=== PATIENT | male | born 1965 | race Caucasian/White ===

== ENCOUNTER → 2017-09-03 | Outpatient (CLI) | payer MEDICARE, BC ==
--- NOTE | 2017-09-11 10:29 | P.ARTDOP ---
Arterial Doppler LOWER EXTREMITY ARTERIAL DOPPLER: DATE OF SERVICE: 09/03/2017 Reason for study: Bilateral calf claudication. Doppler waveforms: Multiphasic bilaterally throughout. Pulse volume recording: Normal configuration. Pressure gradients: None. Ankle-brachial indices: Greater than 1 bilaterally. Toe pressures: 96 on the right, 113 on the left Impression: Normal study.
== END ==
LOC: RADUSWWP 14:35
PROVIDERS: ATTEND Internal Medicine
DX: I73.9 Peripheral vascular disease, unspecified (principal)
CPT/HCPCS: 93922

== ENCOUNTER → 2018-05-22 | Outpatient (CLI) | payer MEDICARE, BC ==
[2018-05-22 09:03] LABS: T4, Free (Free Thyroxine) 0.84 ng/dL (0.78-2.19)
== END | disposition home or self-care (01) ==
LOC: LABWHC1 08:11
PROVIDERS: ATTEND Internal Medicine
DX: E11.8 Type 2 diabetes mellitus with unspecified complications (principal)
CPT/HCPCS: 36415; 80061; 84439; 84443

== ENCOUNTER → 2018-06-16 | Outpatient (CLI) | payer MEDICARE, BC ==
--- NOTE | 2018-06-16 13:05 | MR ---
EXAMINATION TYPE: MR cervical spine wo con DATE OF EXAM: 06/16/2018 9:41 AM COMPARISON: NONE HISTORY: Spondylosis w/o myelopathy or radiculopathy cervical region, neck and left arm pain Multiplanar MultiSpin echo imaging of the cervical spine was performed. Comparison: none C2-C3: No evidence for degenerative disc disease. No disc bulge/herniation or protrusion. No Canal stenosis. Foramina are patent bilaterally. C3-C4: No evidence for degenerative disc disease. No disc bulge/herniation or protrusion. No Canal stenosis. Foramina are patent bilaterally. C4-C5: Partial congenital fusion noted. No evidence for degenerative disc disease. No disc bulge/her niation or protrusion. No Canal stenosis. Foramina are patent bilaterally. C5-C6: Moderate disc desiccation noted. Circumferential disc bulge greatest posteriorly. Mild narrowi ng right-sided neural foramen secondary to degenerative change of the cervical apophyseal joints. No evidence for central stenosis or irene disc herniation. C6-C7: Moderate disc desiccation. Posterior disc bulge with encapsulating spur resulting in disc endp late complex posterocentral into the left. There is left sided neural foraminal encroachment severe i n degree. No central stenosis or disc herniation. C7-T1: Moderate disc desiccation noted. Circumferential disc bulge greatest posteriorly. No foraminal encroachment identified. No evidence for central stenosis or irene disc herniation. Cervical segments are intact. There is normal alignment. Scattered ventral spondylosis. Sinusitis n oted. Cervical spinal cord is of normal signal. Craniovertebral junction relationships are within no rmal limits. IMPRESSION: 1. Bilevel degenerative disc disease. 2. Disc bulging as discussed with varying degrees of foraminal encroachment.
== END | disposition home or self-care (01) ==
LOC: RADMRIMAIN 09:10
PROVIDERS: ATTEND Internal Medicine
DX: M50.223 Other cervical disc displacement at C6-C7 level (principal); M50.30 Other cervical disc degeneration, unspecified cervical region; R20.2 Paresthesia of skin
CPT/HCPCS: 72141

== ENCOUNTER → 2019-02-09 | Outpatient (CLI) | payer MEDICARE, BC | END | disposition home or self-care (01) | LOC: LABWHC1 08:12 | PROVIDERS: ATTEND Internal Medicine Endocrinology, Diabetes & Metabolism | DX: E11.65 Type 2 diabetes mellitus with hyperglycemia (principal); H02.429 Myogenic ptosis of unspecified eyelid | CPT/HCPCS: 36415; 82533; 83519 ==

== ENCOUNTER → 2019-04-28 | Outpatient (CLI) | payer MEDICARE, BC | END | disposition home or self-care (01) | LOC: LABWHC1 14:53 | PROVIDERS: ATTEND Internal Medicine Endocrinology, Diabetes & Metabolism | DX: E27.40 Unspecified adrenocortical insufficiency (principal) | CPT/HCPCS: 36415; 82024; 82533 ==

== ENCOUNTER → 2019-08-13 | Outpatient (CLI) | payer MEDICARE, BC ==
[2019-08-13 17:31] LABS: African American GFR (CKD) 86.5 (60.0-200.0); Albumin 4.9 g/dL (3.80-4.90); Albumin/Globulin Ratio 2.23 (1.60-3.17); Anion Gap 11.3 mmol/L (4.00-12.00); BUN/Creat Ratio 20.91 Ratio (12.00-20.00); Calcium 9.8 mg/dL (8.7-10.3); Carbon Dioxide 24.7 mmol/L (21.6-31.8); Chol/HDL Ratio 4.69; Globulin 2.2 g/dL (1.6-3.3); LDL Cholesterol,Calculated 69.8 mg/dL (0.0-131.0); Non-African American GFR(CKD) 74.6 (60.0-200.0); Potassium 4.6 mmol/L (3.5-5.5); Total Bilirubin 0.5 mg/dL (0.3-1.2); Total Protein 7.1 g/dL (6.2-8.2); VLDL Calculation 59.2 mg/dL (5.00-40.00)
[2019-08-13 21:04] LABS: Hemoglobin A1C 7.3 % (4.0-6.0)
== END | disposition home or self-care (01) ==
LOC: LABWHC1 07:55
PROVIDERS: ATTEND Internal Medicine Endocrinology, Diabetes & Metabolism
DX: E11.65 Type 2 diabetes mellitus with hyperglycemia (principal)
CPT/HCPCS: 36415; 80053; 80061; 82043; 82570; 83036; 84443

== ENCOUNTER → 2019-11-23 | Outpatient (CLI) | payer MEDICARE, BC ==
[2019-11-23 17:32] LABS: African American GFR (CKD) 97.1 (60.0-200.0); Albumin 4.9 g/dL (3.80-4.90); Albumin/Globulin Ratio 2.04 (1.60-3.17); Anion Gap 6.1 mmol/L (4.00-12.00); Calcium 9.7 mg/dL (8.7-10.3); Carbon Dioxide 25.9 mmol/L (21.6-31.8); Globulin 2.4 g/dL (1.6-3.3); Non-African American GFR(CKD) 83.8 (60.0-200.0); Potassium 4.6 mmol/L (3.5-5.5); Total Bilirubin 0.5 mg/dL (0.3-1.2); Total Protein 7.3 g/dL (6.2-8.2)
== END | disposition home or self-care (01) ==
LOC: LABWHC1 07:52
PROVIDERS: ATTEND Internal Medicine Endocrinology, Diabetes & Metabolism
DX: E27.40 Unspecified adrenocortical insufficiency (principal)
CPT/HCPCS: 36415; 80053; 82024; 82533

== ENCOUNTER → 2020-03-22 | Outpatient (CLI) | payer MEDICARE, BC ==
[2020-03-22 19:21] LABS: Urine Creatinine 51.9 mg/dL
== END | disposition home or self-care (01) ==
LOC: LABWHC1 10:02
PROVIDERS: ATTEND Internal Medicine Endocrinology, Diabetes & Metabolism
DX: E11.65 Type 2 diabetes mellitus with hyperglycemia (principal)
CPT/HCPCS: 36415; 82043; 82570; 84443

== ENCOUNTER → 2020-06-29 | Outpatient (CLI) | payer MEDICARE, BC ==
[2020-06-29 22:41] LABS: African American GFR (CKD) 97.1 (60.0-200.0); Albumin 4.7 g/dL (3.80-4.90); Albumin/Globulin Ratio 1.96 (1.60-3.17); Anion Gap 12.1 mmol/L (4.00-12.00); Calcium 9.4 mg/dL (8.7-10.3); Carbon Dioxide 22.9 mmol/L (21.6-31.8); Chol/HDL Ratio 5.23; Globulin 2.4 g/dL (1.6-3.3); LDL Cholesterol,Calculated 110.2 mg/dL (0.0-131.0); Non-African American GFR(CKD) 83.8 (60.0-200.0); Potassium 4.5 mmol/L (3.5-5.5); Total Bilirubin 0.5 mg/dL (0.3-1.2); Total Protein 7.1 g/dL (6.2-8.2); VLDL Calculation 54.8 mg/dL (5.00-40.00)
[2020-06-30 01:10] LABS: Urine Creatinine 73.4 mg/dL
== END | disposition home or self-care (01) ==
LOC: LABWHC1 09:33
PROVIDERS: ATTEND Internal Medicine Endocrinology, Diabetes & Metabolism
DX: E11.65 Type 2 diabetes mellitus with hyperglycemia (principal)
CPT/HCPCS: 36415; 80053; 80061; 82043; 82570; 83036; 84443

== ENCOUNTER 2021-01-07 10:22 | Inpatient (IN) | payer MEDICARE, BC ==
[2021-01-07] MEDS ORDERED: SODIUM CHLORIDE 0.9% 500 ML 500 ML IV STA (10:40)
--- NOTE | 2021-01-07 10:44 | ED ---
General Adult HPI - General Chief complaint: Neuro Symptoms/Deficit Stated complaint: Neuro Time Seen by Provider: 01/07/21 10:23 Source: patient, RN notes reviewed, old records reviewed Mode of arrival: EMS Limitations: no limitations - History of Present Illness Initial comments: 55-year-old male presenting with left leg weakness and gait instability. Patient noticed this first approximate 3 days ago. He states that he got out of bed and felt that his leg was asleep and subsequently fell. He did fall striking the back of his head. This occurred 2 days prior to arrival. He is on his third day of noted weakness in the left leg. Additionally he reports some visual changes stating that he cannot see things on the left side. He has had some generalized fatigue as well. No reported fever. No cough or dyspnea. No central chest pain. - Related Data Home Medications Medication Instructions Recorded Confirmed Amitriptyline HCl [Elavil] 10 mg PO HS 01/07/21 01/07/21 Atorvastatin Calcium [Lipitor] 10 mg PO HS 01/07/21 01/07/21 Bictegrav/Emtricit/Tenofov Ala 1 tab PO HS 01/07/21 01/07/21 [Biktarvy 50-200-25 mg Tablet] Canagliflozin [Invokana] 300 mg PO DAILY 01/07/21 01/07/21 Famciclovir [Famvir] 500 mg PO BID 01/07/21 01/07/21 Fosamprenavir Calcium [Lexiva] 1,400 mg PO BID 01/07/21 01/07/21 Gabapentin 800 mg PO TID 01/07/21 01/07/21 Ibuprofen [Motrin Ib] 400 mg PO Q8H PRN 01/07/21 01/07/21 Lisinopril [Zestril] 10 mg PO HS 01/07/21 01/07/21 Pioglitazone [Actos] 30 mg PO DAILY 01/07/21 01/07/21 Terazosin [Hytrin] 2 mg PO DAILY 01/07/21 01/07/21 Testosterone [Androgel 1.62% Gel 2 pump TOPICAL DAILY 01/07/21 01/07/21 Pump] glipiZIDE [Glucotrol] 7.5 mg PO BID 01/07/21 01/07/21 metFORMIN HCL [Glucophage] 500 mg PO AC-BID 01/07/21 01/07/21 Allergies Allergy/AdvReac Type Severity Reaction Status Date / Time 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 ROS Other: All systems not noted in ROS Statement are negative. Past Medical History Past Medical History: Cancer, Diabetes Mellitus, Hyperlipidemia Additional Past Medical History / Comment(s): AIDS, verigo, nurophathy, Rectal CA - last surgery History of Any Multi-Drug Resistant Organisms: None Reported Past Surgical History: Tonsillectomy Past Psychological History: No Psychological Hx Reported Smoking Status: Former smoker Past Alcohol Use History: None Reported Past Drug Use History: None Reported General Exam Limitations: no limitations General appearance: alert, in no apparent distress Head exam: Present: atraumatic, normocephalic Eye exam: Present: normal appearance, PERRL, other (Apparent left visual field deficit) ENT exam: Present: normal exam Neck exam: Present: normal inspection. Absent: tenderness, meningismus Respiratory exam: Present: normal lung sounds bilaterally. Absent: respiratory distress, wheezes Cardiovascular Exam: Present: regular rate, normal rhythm GI/Abdominal exam: Present: soft. Absent: distended, tenderness, guarding Extremities exam: Present: normal inspection, normal capillary refill. Absent: pedal edema Neurological exam: Present: alert, oriented X3, CN II-XII intact, motor sensory deficit (Left leg weakness, able to resist against gravity) Psychiatric exam: Present: normal affect, normal mood Skin exam: Present: warm, dry, intact. Absent: cyanosis, diaphoretic Course Vital Signs 01/07/21 01/07/21 01/07/21 10:23 11:00 11:30 Temperature 98.8 F Pulse Rate 88 85 82 Respiratory 18 18 18 Rate Blood Pressure 142/95 137/96 131/88 O2 Sat by Pulse 99 96 Oximetry 01/07/21 12:00 Temperature Pulse Rate 78 Respiratory 16 Rate Blood Pressure 122/82 O2 Sat by Pulse 96 Oximetry EKG Findings - EKG Comments: EKG Findings:: EKG: Normal sinus rhythm, rate superior axis, no ST segment elevation, rate of 85, SD interval 168, QRS duration 92, QTC 456 Medical Decision Making - Medical Decision Making 55-year-old male presenting with symptoms concerning for CVA. Patient is not a TPA candidate given that his symptoms began greater than 2 days ago. He has left leg weakness. Additionally he has visual field deficit bilateral eyes on the left. Workup reveals CT that shows concern for right parietal occipital infarct. There is no hemorrhage. CT angiography negative for acute occlusion or aneurysmal change. Patient is given aspirin emergency department. He will be admitted for further stroke workup. Case discussed with Dr. Conrad who will admit. - Lab Data Result diagrams: 01/07/21 10:55 01/07/21 10:55 Lab Results 01/07/21 01/07/21 01/07/21 Range/Units 10:55 10:55 10:55 WBC 6.3 (3.8-10.6) k/uL RBC 5.42 (4.30-5.90) m/uL Hgb 14.7 (13.0-17.5) gm/dL Hct 44.6 (39.0-53.0) % MCV 82.2 (80.0-100.0) fL MCH 27.2 (25.0-35.0) pg MCHC 33.1 (31.0-37.0) g/dL RDW 15.3 (11.5-15.5) % Plt Count 186 (150-450) k/uL MPV 7.6 Neutrophils % 67 % Lymphocytes % 24 % Monocytes % 5 % Eosinophils % 3 % Basophils % 0 % Neutrophils # 4.2 (1.3-7.7) k/uL Lymphocytes # 1.5 (1.0-4.8) k/uL Monocytes # 0.3 (0-1.0) k/uL Eosinophils # 0.2 (0-0.7) k/uL Basophils # 0.0 (0-0.2) k/uL PT 10.4 (9.0-12.0) sec INR 1.0 (<1.2) APTT 21.6 L (22.0-30.0) sec Sodium 140 (137-145) mmol/L Potassium 4.7 (3.5-5.1) mmol/L Chloride 106 (98-107) mmol/L Carbon Dioxide 23 (22-30) mmol/L Anion Gap 11 mmol/L BUN 28 H (9-20) mg/dL Creatinine 1.00 (0.66-1.25) mg/dL Est GFR (CKD-EPI)AfAm >90 (>60 ml/min/1.73 sqM) Est GFR (CKD-EPI)NonAf 83 (>60 ml/min/1.73 sqM) Glucose 154 H (74-99) mg/dL Calcium 9.2 (8.4-10.2) mg/dL Total Bilirubin 0.8 (0.2-1.3) mg/dL AST 47 (17-59) U/L ALT 64 H (4-49) U/L Alkaline Phosphatase 45 (38-126) U/L Troponin I (0.000-0.034) ng/mL Total Protein 7.1 (6.3-8.2) g/dL Albumin 4.3 (3.5-5.0) g/dL 01/07/21 Range/Units 10:55 WBC (3.8-10.6) k/uL RBC (4.30-5.90) m/uL Hgb (13.0-17.5) gm/dL Hct (39.0-53.0) % MCV (80.0-100.0) fL MCH (25.0-35.0) pg MCHC (31.0-37.0) g/dL RDW (11.5-15.5) % Plt Count (150-450) k/uL MPV Neutrophils % % Lymphocytes % % Monocytes % % Eosinophils % % Basophils % % Neutrophils # (1.3-7.7) k/uL Lymphocytes # (1.0-4.8) k/uL Monocytes # (0-1.0) k/uL Eosinophils # (0-0.7) k/uL Basophils # (0-0.2) k/uL PT (9.0-12.0) sec INR (<1.2) APTT (22.0-30.0) sec Sodium (137-145) mmol/L Potassium (3.5-5.1) mmol/L Chloride (98-107) mmol/L Carbon Dioxide (22-30) mmol/L Anion Gap mmol/L BUN (9-20) mg/dL Creatinine (0.66-1.25) mg/dL Est GFR (CKD-EPI)AfAm (>60 ml/min/1.73 sqM) Est GFR (CKD-EPI)NonAf (>60 ml/min/1.73 sqM) Glucose (74-99) mg/dL Calcium (8.4-10.2) mg/dL Total Bilirubin (0.2-1.3) mg/dL AST (17-59) U/L ALT (4-49) U/L Alkaline Phosphatase (38-126) U/L Troponin I <0.012 (0.000-0.034) ng/mL Total Protein (6.3-8.2) g/dL Albumin (3.5-5.0) g/dL Disposition Clinical Impression: Cerebrovascular accident (CVA) Disposition: ADMITTED IP TO THIS [facility] Condition: Stable Is patient prescribed a controlled substance at d/c from ED?: No Referrals: Nonstaff,Physician [Primary Care Provider] - 1-2 days Decision to Admit Reason: Admit from EC Decision Date: 01/07/21 Decision Time: 13:12
[2021-01-07 11:15] LABS: Basophils % (A) 0 %; Eosinophils # (A) 0.2 k/uL (0-0.7); Eosinophils % (A) 3 %; HCT 44.6 % (39.0-53.0); HGB 14.7 gm/dL (13.0-17.5); Lymphocytes # (A) 1.5 k/uL (1.0-4.8); Lymphocytes % (A) 24 %; MCH 27.2 pg (25.0-35.0); MCHC 33.1 g/dL (31.0-37.0); MCV 82.2 fL (80.0-100.0); Mean Platelet Volume 7.6; Monocytes # (A) 0.3 k/uL (0-1.0); Monocytes % (A) 5 %; Neutrophils # (A) 4.2 k/uL (1.3-7.7); Neutrophils % (A) 67 %; Platelet Count 186 k/uL (150-450); RBC 5.42 m/uL (4.30-5.90); RDW 15.3 % (11.5-15.5); WBC 6.3 k/uL (3.8-10.6)
[2021-01-07 11:27] LABS: ALT 64 U/L (4-49); AST 47 U/L (17-59); African American GFR (CKD) >90 (>60 ml/min/1.73 sqM); Albumin 4.3 g/dL (3.5-5.0); Alkaline Phosphatase 45 U/L (38-126); Anion Gap 11 mmol/L; Blood Urea Nitrogen 28 mg/dL (9-20); Calcium 9.2 mg/dL (8.4-10.2); Carbon Dioxide 23 mmol/L (22-30); Chloride 106 mmol/L (98-107); Glucose 154 mg/dL (74-99); Non-African American GFR(CKD) 83 (>60 ml/min/1.73 sqM); Potassium 4.7 mmol/L (3.5-5.1); Sodium 140 mmol/L (137-145); Total Bilirubin 0.8 mg/dL (0.2-1.3); Total Protein 7.1 g/dL (6.3-8.2)
[2021-01-07 11:40] LABS: Prothrombin Time 10.4 sec (9.0-12.0)
[2021-01-07 11:44] LABS: Partial Thromboplastin Time 21.6 sec (22.0-30.0)
--- NOTE | 2021-01-07 11:44 | XR ---
EXAMINATION TYPE: XR chest 2V DATE OF EXAM: 01/07/2021 COMPARISON: NONE HISTORY: Altered mental status and weakness. TECHNIQUE: Frontal and lateral views of the chest are obtained. FINDINGS: There is mild chronic parenchymal changes without suspicious focal air space opacity, pleu ral effusion, or pneumothorax seen. The cardiac silhouette size is within normal limits. The osseo us structures are intact. IMPRESSION: No acute cardiopulmonary process.
--- NOTE | 2021-01-07 11:53 | CT ---
EXAMINATION TYPE: CT brain wo con for TPA DATE OF EXAM: 01/07/2021 HISTORY: Left sided weakness, neuro deficits, acute, stroke symptoms. Acute onset neuro deficit. CT DLP: 1051.8 mGycm. Automated Exposure Control for Dose Reduction was Utilized. TECHNIQUE: CT scan of the head is performed without contrast. COMPARISON: None. FINDINGS: There is no acute intracranial hemorrhage or midline shift identified. There is diffuse v entricular and sulcal prominence consistent with diffuse age-related cerebral atrophy. Vague area of low attenuation right parietal occipital white matter inferiorly near axial image 32 and coronal imag e 52. There is extension into the posterior superior temporal lobe medially axial image 26. The glob es are intact and the visualized sinuses are clear. IMPRESSION: No acute intracranial hemorrhage or midline shift. There is mild diffuse age-related ce rebral atrophy. Nonspecific vague area of low attenuation right parietal occipital region extending i nto the posterior superior temporal lobe suspicious for evolving acute infarct.
--- NOTE | 2021-01-07 13:04 | CT ---
EXAMINATION TYPE: CT angio head neck DATE OF EXAM: 01/07/2021 HISTORY: Left sided weakness, neuro deficits, acute onset neuro deficit, stroke symptoms COMPARISON: None. CT DLP: 368.7 mGycm. Automated Exposure Control for Dose Reduction was Utilized. TECHNIQUE: CTA scan of the head and neck are performed with IV Contrast, patient injected with 65 mL of Isovue 370, axial images are obtained, coronal and sagittal reformatted images are reviewed. Thre e-D reconstructed images are created on an independent workstation and reviewed. FINDINGS: Carotid/Vascular Structures: Normal 3 vessel origin from aortic arch. Normal origin right common river[place] tid artery from the right brachiocephalic artery. No significant plaque or stenosis in the common car otid arteries bilaterally. There is mild mixed plaque at the bilateral carotid bulbs extending into p roximal internal carotid arteries bilaterally. No significant stenosis is seen. No significant plaque or stenosis in the external carotid arteries bilaterally. There is a patent anterior communicating artery. There is no significant focal stenosis or aneurysmal change in the anterior circulation. There is codominant vertebral basilar system. Vertebral arteries are patent to basilar junction. There are hypoplastic bilateral posterior communicating arteries. No significant focal stenosis or aneurysm is seen. Other: Underlying scoliotic curvature on coronal images. Moderate disc space narrowing with some oss ific fusion at the C4-C5 level. Prominent anterior osteophytes in the upper to mid thoracic spine. IMPRESSION: 1. Mild plaque bilateral carotid bulb level. No significant stenosis in common or internal carotid ar teries bilaterally. 2. No significant stenosis or aneurysm at the level of the [place].
[2021-01-07] MEDS ORDERED: ASPIRIN 325 MG TAB PO STA (13:09)
[2021-01-07] MEDS: SODIUM CHLORIDE 0.9% 1,000 ML IV SCH ×2 (13:18→23:15)
[2021-01-07] MEDS ORDERED: ATORVASTATIN 80 MG TAB PO STA (15:42)
[2021-01-07] MEDS ORDERED: CLOPIDOGREL 75 MG TAB PO STA (15:43)
--- NOTE | 2021-01-07 16:43 | P.CNNES ---
History of Present Illness Consult date: 01/07/21 Requesting physician: Richard Valentin Reason for Consult: Stroke for left sided weakness History of Present Illness: This is a 55-year-old gentleman with medical history of diabetes mellitus (10 years), HIV since 1994, neuropathy, lipid dystrophy and hyperlipidemia who presented emergency department on 01/07/2021 for left-sided weakness which occurred 3 days ago. As stated that about 3 days ago he woke up and all of a sudden he noticed his left leg was weak as well was numb. Then he was a thin stated later he fell down the stairs and doesn't have a good recall and of the episode but denies any urinary incontinence, bowel incontinence or tongue bite. He thought his symptoms were related to diabetes. Next day he noticed that while he is using a fork he is having difficulty using it was on the left hand. He said his symptoms are worsened the next day as a result he decided to come to the emergency department today. He denies of any history of stroke or transient ischemic attack. He is on aspirin 81 mg daily, Lipitor 10 g daily. He denies tobacco use or alcohol use. Denies diagnosis of epilepsy in the past. He has history of HIV since 1994 and he's been compliant with taking his medication and he follows up with the infection disease specialist as well as a neurologist [facility] at [facility]. Regarding his neuropathy and he said that started a prior to his diabetes and was likely due to medication the fact from the HIV. Patient home medication is Lipitor 10 mg, multiple diabetic medication, lisinopril, gabapentin. He is on Biktarvy for HIV and is compliant taking his medication. Workup in the hospital consisted of: Initial vital signs: Blood pressure of 142/95, heart rate of 88, respiratory of 18, temperature of 98.8 Fahrenheit oral and pulse ox of 99% room air. CT of the head is reported as no acute intracranial hemorrhage or midline shift. There is mild diffuse age-related cerebral atrophy. Nonspecific vague area of low attenuation right parietal occipital region extending into the posterosuperior temporal lobe suspicious for evolving acute infarct. CT angiography of the head and neck was reported as mild plaque bilateral carotid bulb level. No significant stenosis in common or internal carotid artery bilaterally. No significant stenosis or aneurysm at the level of [place] EKG is reported as normal sinus rhythm. Right superior axis deviation. Pul monary disease pattern. Abnormal EKG. On presentation the initial serum glucose is 154. The ALT slightly elevated and rest of the CBC and a basic metabolic panel were within normal range. Melton virus PCR was not detected. Review of Systems Review of system: The 12 point system was reviewed and apparent positive and negative per HPI. Past Medical History Past Medical History: Cancer, Diabetes Mellitus, Hyperlipidemia Additional Past Medical History / Comment(s): AIDS, vertigo, neurophathy, Rectal CA - last surgery History of Any Multi-Drug Resistant Organisms: None Reported Past Surgical History: Tonsillectomy Additional Past Surgical History / Comment(s): Rectal cancer-surgery Past Anesthesia/Blood Transfusion Reactions: No Reported Reaction Smoking Status: Former smoker - Past Family History Mother Family Medical History: Renal Disease Father Family Medical History: Diabetes Mellitus, Hyperlipidemia, Hypertension, Myocardial Infarction (OR) Medications and Allergies Home Medications Medication Instructions Recorded Confirmed Type Amitriptyline HCl [Elavil] 10 mg PO HS 01/07/21 01/07/21 History Atorvastatin Calcium [Lipitor] 10 mg PO HS 01/07/21 01/07/21 History Bictegrav/Emtricit/Tenofov Ala 1 tab PO HS 01/07/21 01/07/21 History [Biktarvy 50-200-25 mg Tablet] Canagliflozin [Invokana] 300 mg PO DAILY 01/07/21 01/07/21 History Famciclovir [Famvir] 500 mg PO BID 01/07/21 01/07/21 History Fosamprenavir Calcium [Lexiva] 1,400 mg PO BID 01/07/21 01/07/21 History Gabapentin 800 mg PO TID 01/07/21 01/07/21 History Ibuprofen [Motrin Ib] 400 mg PO Q8H PRN 01/07/21 01/07/21 History Lisinopril [Zestril] 10 mg PO HS 01/07/21 01/07/21 History Pioglitazone [Actos] 30 mg PO DAILY 01/07/21 01/07/21 History Terazosin [Hytrin] 2 mg PO DAILY 01/07/21 01/07/21 History Testosterone [Androgel 1.62% Gel 2 pump TOPICAL DAILY 01/07/21 01/07/21 History Pump] glipiZIDE [Glucotrol] 7.5 mg PO BID 01/07/21 01/07/21 History metFORMIN HCL [Glucophage] 500 mg PO AC-BID 01/07/21 01/07/21 History Allergies Allergy/AdvReac Type Severity Reaction Status Date / Time abacavir Allergy 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 CHEST: The heart rate is regular rate rhythm. No murmurs to auscultation. No carotid bruit bilaterally. LUNG: Clear to auscultation bilaterally no wheezing noted throughout. Not labored breathing. ABDOMEN/GI: Bowel sounds present in all 4 quadrants. No tenderness to palpation throughout. NEUROLOGICAL: Higher mental function: The patient is awake, alert, oriented to self, place and time. Patient is following commands. No aphasia and no neglect. Cranial nerves: The pupils are round, equal and reactive to light and accommodation. Visual argueta left homonymous hemianopsia to confrontation throughout. Extraocular movement is intact no nystagmus is noted. Facial sensation is normal to touch throughout. The facial strength is normal throughout. Hearing is normal bilaterally to hand rub. Tongue is midline and moved [id number] without any difficulty. No dysarthria is noted. Shoulder shrug is normal bilaterally. Motor: Gait is slow and slight drift on the left. The strength is 5-/5 over the left otherwise 5 over 5 throughout. He is cachectic. Cerebellum: Normal finger to nose bilaterally. Sensation: Sensation is normal to touch throughout. Reflexes (right/left): 2+ Plantars are downgoing bilaterally. Results - Laboratory Findings CBC and BMP: 04/17/21 10:55 01/07/21 10:55 Abnormal Lab Findings: Abnormal Labs 01/07/21 01/07/21 10:55 10:55 APTT 21.6 L BUN 28 H Glucose 154 H ALT 64 H Assessment and Plan Assessment: Acute ischemic stroke over the right parietal, occipital extending into the post erior superior temporal lobe (symptoms began 3 days ago with left leg weakness and numbness then noticed left hand weakness). Left homonymous hemianopsia Diabetes mellitus (10 years) HIV (since 1994) Neuropathy (Due to medication effect (HIV but could not tell me name) hyperlipidemia Lipid dystrophy Plan: CT of the head is reported as no acute intracranial hemorrhage or midline shift. There is mild diffuse age-related cerebral atrophy. Nonspecific vague area of low attenuation right parietal occipital region extending into the posterosuperior temporal lobe suspicious for evolving acute infarct. CT angiography of the head and neck was reported as mild plaque bilateral carotid bulb level. No significant stenosis in common or internal carotid artery bilaterally. No significant stenosis or aneurysm at the level of [place] I'll get repeat CT of the head for tomorrow. I ordered MRI of the brain (to make sure it is truly a stroke and other underlying structural lesion) especially with history of HIV. MRI Brain will be done likely on Saturday since no tech available until then. Patient was given aspirin 325 once. 80 started the patient on aspirin 325 I decreased it to 81 and the start the patient on Plavix 75 for the patient to be on dual antiplatelet for now. I loaded the patient with Plavix 300 mg once I loaded the patient with the Lipitor 80 mg once is well then start the patient on Lipitor 40 mg qhs. 2-D echo, lipid panel I ordered and is pending I ordered TSH, hemoglobin A1c. Waist the patient on every 4 hours neuro checks, and continuous cardiac monitoring. PT OT and NEWS PRODUCTION ASSISTANT are consulted Keep the blood pressure permissive and don't treat on till the systolic blood pressure is more than 200 diastolic blood pressure is more than 100 especially with acute ischemic stroke. We'll defer the rest of medical management to the primary team. Thank you for the consultation. Ez Pa M.D. Neuro-hospitalist Time with Patient: Greater than 30
[2021-01-07 16:55] LABS: Glucose,Whole Blood 77 mg/dL (75-99)
[2021-01-07] MEDS: Canagliflozin [Invokana] PO SCH (18:27)
[2021-01-07 19:56] LABS: Glucose,Whole Blood 124 mg/dL (75-99)
[2021-01-07] MEDS: glipiZIDE 5 MG TAB PO SCH (21:10)
[2021-01-07] MEDS: HEPARIN SODIUM,PORCINE/PF 5,000 UNIT/0.5 ML SYRINGE SQ SCH (21:10)
[2021-01-07] MEDS: lisinopriL 10 MG TAB PO SCH (21:10)
[2021-01-07] MEDS: FAMCICLOVIR 500 MG TAB PO SCH (21:10)
[2021-01-07] MEDS: AMITRIPTYLINE HCL 10 MG TAB PO SCH (21:10)
[2021-01-07] MEDS: Bictegrav/Emtricit/Tenofov Ala [Biktarvy 50-200-25 Mg Tablet] PO SCH (21:11)
[2021-01-07] MEDS: FOSAMPRENAVIR CALCIUM PO SCH (21:11)
--- NOTE | 2021-01-07 23:50 | P.HPIM ---
History of Present Illness H&P Date: 01/07/21 Chief Complaint: Left leg weakness Patient is a 55-year-old male with a known history of hyperlipidemia, diabetes type 2, HIV on antiretroviral therapy, diabetic peripheral neuropathy, rectal cancer status post surgery and previous history of smoking presents to ER with the complaints of left-sided weakness. Patient states that she got out of bed 3 days ago and felt left leg weakness and giveaway and subsequently he fell x3. He did strike his back of his head with small laceration bleeding which was resolved. Denies any expressive aphasia. No facial droop. Patient thought that it would resolve and there has been no improvement until today. He contacted his primary care physician who recommended to call EMS and go to ER. Patient is also complaining of some visual changes and could not see things on the left side. Was also complaining of trouble with palletizer of the left hand. Otherwise denied any complaints of fever or chills. No nausea vomiting abdominal pain. No diarrhea or dysuria. No recent illnesses or sick contacts. No recent travel. Chest x-ray showed no acute cardiopulmonary process CT head showed no acute intracranial hemorrhage or midline shift. There is mild diffuse age-related cerebral atrophy. Nonspecific vague area of low-attenuation right parieto-occipital region extending into the posterior superior temporal lobe suspicious for evolving acute infarct. CT angiogram of the head and neck showed mild plaque bilateral carotid bulb level. No significant stenosis in the common internal carotid arteries bilaterally. No significant stenosis or aneurysm in the level of the [place]. EKG showed normal sinus rhythm Blood pressure is 142/95 pulse 88 and pulse ox 99% on room air. Review of Systems Constitutional: Patient denies any fever or chills . No generalized weakness or weight loss. Abdomen: Patient denied nausea vomiting and diarrhea and abdominal pain. Cardiovascular: Patient denies any chest pain or short of breath no palpitations. Respiratory: patient denied any cough or sputum production. No shortness of breath Neurologic: Patient denied any numbness or tingling headache.Left leg weakness and visual disturbance on the left Musculoskeletal: Patient denies any complaints of joint swelling or deformity. Skin: Negative Psychiatric: Negative Endocrine: No heat or cold intolerance. No recent weight gain. Genitourinary: No dysuria or hematuria. All other 14 point ROS negative except the above Past Medical History Past Medical History: Cancer, Diabetes Mellitus, Hyperlipidemia Additional Past Medical History / Comment(s): AIDS, vertigo, neurophathy, Rectal CA - last surgery History of Any Multi-Drug Resistant Organisms: None Reported Past Surgical History: Tonsillectomy Additional Past Surgical History / Comment(s): Rectal cancer-surgery Past Anesthesia/Blood Transfusion Reactions: No Reported Reaction Smoking Status: Former smoker - Past Family History Mother Family Medical History: Renal Disease Father Family Medical History: Diabetes Mellitus, Hyperlipidemia, Hypertension, Myocardial Infarction ([place]) Medications and Allergies Home Medications Medication Instructions Recorded Confirmed Type Amitriptyline HCl [Elavil] 10 mg PO HS 01/07/21 01/07/21 History Atorvastatin Calcium [Lipitor] 10 mg PO HS 01/07/21 01/07/21 History Bictegrav/Emtricit/Tenofov Ala 1 tab PO HS 01/07/21 01/07/21 History [Biktarvy 50-200-25 mg Tablet] Canagliflozin [Invokana] 300 mg PO DAILY 01/07/21 01/07/21 History Famciclovir [Famvir] 500 mg PO BID 01/07/21 01/07/21 History Fosamprenavir Calcium [Lexiva] 1,400 mg PO BID 01/07/21 01/07/21 History Gabapentin 800 mg PO TID 01/07/21 01/07/21 History Ibuprofen [Motrin Ib] 400 mg PO Q8H PRN 01/07/21 01/07/21 History Lisinopril [Zestril] 10 mg PO HS 01/07/21 01/07/21 History Pioglitazone [Actos] 30 mg PO DAILY 01/07/21 01/07/21 History Terazosin [Hytrin] 2 mg PO DAILY 01/07/21 01/07/21 History Testosterone [Androgel 1.62% Gel 2 pump TOPICAL DAILY 01/07/21 01/07/21 History Pump] glipiZIDE [Glucotrol] 7.5 mg PO BID 01/07/21 01/07/21 History metFORMIN HCL [Glucophage] 500 mg PO AC-BID 01/07/21 01/07/21 History Allergies Allergy/AdvReac Type Severity Reaction Status Date / Time abacavir Allergy 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 HEENT: Normocephalic. Neck is supple. Pupils reactive. Nostrils clear. Oral cavity is moist. Ears reveal no drainage. Neck reveals no JVD, carotid bruits, or thyromegaly. CHEST EXAMINATION: Trachea is central. Symmetrical expansion. Lung argueta clear to auscultation and percussion. CARDIAC: Normal S1, S2 with no gallops. No murmurs ABDOMEN: Soft. Bowel sounds normal. No organomegaly. No abdominal bruits. Extremities: reveal no edema. No clubbing or cyanosis Neurologically awake, alert, oriented x3 Patient does left leg weakness more compared to right leg. Cranial nerves intact. Skin: No rash or skin lesions. Psychiatric: Coperative. Nonsuicidal Musculoskeletal: No joint swelling or deformity. Normal range of motion. Results CBC & Chem 7: 01/07/21 10:55 01/07/21 10:55 Labs: Abnormal Lab Results - Last 24 Hours (Table) 01/07/21 01/07/21 Range/Units 10:55 10:55 APTT 21.6 L (22.0-30.0) sec BUN 28 H (9-20) mg/dL Glucose 154 H (74-99) mg/dL ALT 64 H (4-49) U/L Thrombosis Risk Factor Assmnt - DVT/VTE Prophylaxis DVT/VTE Prophylaxis: Pharmacologic Prophylaxis ordered Assessment and Plan Assessment: Acute ischemic CVA involving the right parieto-occipital region extending into t he posterior superior temporal lobe. Developed symptoms 3 days ago Left leg weakness and numbness Left eye visual disturbance Diabetes type 2 [id number] HIV currently on antiretroviral therapy Diabetic peripheral neuropathy History of rectal cancer status post surgery Previous history of smoking DVT prophylaxis. Plan: Patient will be continued telemetry monitoring. Was given aspirin and statin dose. Continue with neurochecks. Stroke work-up was ordered. 2D echocardiogram and lipid panel. Neurology is on board. TSH level within normal limits. Speech and swallow evaluation PT OT will be consulted. Continue with aspirin and statins. Further recommendations based on clinical course. Time with Patient: Greater than 30
[2021-01-08 02:41] LABS: Glucose,Whole Blood 61 mg/dL (75-99)
[2021-01-08 02:58] LABS: Glucose,Whole Blood 85 mg/dL (75-99)
[2021-01-08 06:15] LABS: Glucose,Whole Blood 135 mg/dL (75-99)
--- NOTE | 2021-01-08 08:19 | CT ---
EXAMINATION TYPE: CT brain wo con DATE OF EXAM: 01/08/2021 HISTORY: Evolution of stroke, admitted for acute onset neuro deficit left-sided weakness one day johnny ier CT DLP: 1040.0 mGycm. Automated Exposure Control for Dose Reduction was Utilized. TECHNIQUE: CT scan of the head is performed without contrast. COMPARISON: CT brain 1 day ago. FINDINGS: There is no acute intracranial hemorrhage or midline shift identified. Ventricles and sul ci are within normal limits in size for patient's age. There is persistent suspicious area of low att enuation inferior right parietal occipital region with superior medial temporal lobe extension noted on axial images 23 through 34. Findings slightly more defined on current study. Small dependent air-f luid level right maxillary sinus redemonstrated. Remainder paranasal sinuses remain clear. IMPRESSION: No acute intracranial hemorrhage or midline shift. There is confirmation of evolving acu te nonhemorrhagic infarct inferior right parietal occipital region with superior medial temporal lobe extension.
[2021-01-08] MEDS: FOSAMPRENAVIR CALCIUM PO SCH ×2 (08:35→20:50)
[2021-01-08] MEDS: Canagliflozin [Invokana] PO SCH (08:35)
[2021-01-08] MEDS: glipiZIDE 5 MG TAB PO SCH ×2 (08:35→20:51)
[2021-01-08] MEDS: CLOPIDOGREL 75 MG TAB PO SCH (08:35)
[2021-01-08] MEDS: HEPARIN SODIUM,PORCINE/PF 5,000 UNIT/0.5 ML SYRINGE SQ SCH ×2 (08:36→20:50)
[2021-01-08] MEDS: PIOGLITAZONE 30 MG TAB PO SCH (08:43)
[2021-01-08] MEDS: FAMCICLOVIR 500 MG TAB PO SCH ×2 (08:43→20:50)
[2021-01-08 09:39] LABS: Cholesterol 183 mg/dL (<200); HDL Cholesterol 33 mg/dL (40-60); LDL Cholesterol,Calculated 103 mg/dL (0-99); Triglycerides 236 mg/dL (<150)
[2021-01-08 11:43] LABS: Glucose,Whole Blood 116 mg/dL (75-99)
--- NOTE | 2021-01-08 12:15 | P.PN ---
Subjective Progress Note Date: 01/08/21 She was seen at bedside and he stated that he continues to have the visual disturbance but otherwise he feels about the same. Denies of any worsening of his condition. Objective - Vital Signs Vital signs: Vital Signs Temp 97.9 F 01/08/21 08:30 Pulse 76 01/08/21 08:30 Resp 16 01/08/21 08:30 BP 133/87 01/08/21 08:30 Pulse Ox 99 01/08/21 08:30 Intake & Output 01/07/21 01/08/21 01/08/21 18:59 06:59 18:59 Intake Total 118 118 Balance 118 118 Weight 68.039 kg 68.8 kg Intake: Oral 118 118 Other: Voiding Method Toilet Toilet # Voids 1 - Exam GENERAL: The patient is lying in bed, is catachetic and is not in acute distress. NEUROLOGICAL: Higher mental function: The patient is awake, alert, oriented to self, place and time. Patient is following commands. No aphasia and no neglect. Cranial nerves: The pupils are round, equal and reactive to light and accommodation. Visual argueta left homonymous hemianopsia to confrontation thr oughout. Extraocular movement is intact no nystagmus is noted. Facial sensation is normal to touch throughout. The facial strength is normal throughout. Hearing is normal bilaterally to hand rub. Tongue is midline and moved [id number] without any difficulty. No dysarthria is noted. Shoulder shrug is normal bilaterally. Motor: Gait is slow and slight drift on the left. The strength is 5 over 5 throughout. He is cachectic. Cerebellum: Normal finger to nose bilaterally. Sensation: Sensation is normal to touch throughout. Reflexes (right/left): 2+ Plantars are downgoing bilaterally. - Labs CBC & Chem 7: 01/07/21 10:55 01/07/21 10:55 Labs: Abnormal Lab Results - Last 24 Hours (Table) 01/07/21 01/07/21 01/08/21 Range/Units 10:55 19:54 02:37 POC Glucose (mg/dL) 124 H 61 L (75-99) mg/dL Hemoglobin A1c 8.0 H (4.0-6.0) % Triglycerides (<150) mg/dL LDL Cholesterol, Calc (0-99) mg/dL HDL Cholesterol (40-60) mg/dL 01/08/21 01/08/21 01/08/21 Range/Units 06:12 08:55 11:41 POC Glucose (mg/dL) 135 H 116 H (75-99) mg/dL Hemoglobin A1c (4.0-6.0) % Triglycerides 236 H (<150) mg/dL LDL Cholesterol, Calc 103 H (0-99) mg/dL HDL Cholesterol 33 L (40-60) mg/dL Assessment and Plan Assessment: * Acute ischemic stroke over the right parietal, occipital extending into the posterior superior temporal lobe (symptoms began 3 days prior to hospital presentation with left upper and lower extremity weakness and numbness and Left homonymous hemianopsia). Etiology seems embolic * Diabetes mellitus (10 years) * HIV (since 1994) * Neuropathy (Due to medication effect (HIV but could not tell me name) * hyperlipidemia * Lipid dystrophy Plan: CT of the head is reported as no acute intracranial hemorrhage or midline shift. There is mild diffuse age-related cerebral atrophy. Nonspecific vague area of low attenuation right parietal occipital region extending into the posterosuperior temporal lobe suspicious for evolving acute infarct. CT angiography of the head and neck was reported as mild plaque bilateral carotid bulb level. No significant stenosis in common or internal carotid artery bilaterally. No significant stenosis or aneurysm at the level of [place] Repeat CT of the head today: Was reported as no acute intracranial hemorrhage or midline shift. There is confirmation of evolving acute nonhemorrhagic infarct inferior right parietal occipital region was superior medial temporal extension. Lipid panel: Triglyceride of 236, cholesterol 183, LDL is 103 and HDL 33 with a goal of LDL less than 70. TSH: 0.797 (normal), hemoglobin A1c 8.0. MRI Brain will be done likely on Saturday since no tech available until then. Continue ASA 81mg daily and Plavix 75mg daily for now. Continue Lipitor 40 mg qhs. 2-D echo is pending. I consulted cardiology team for MEAGAN. Continue every 4 hours neuro checks, and continuous cardiac monitoring. PT OT and NUTRITION HELPER are consulted We'll defer the rest of medical management to the primary team. The plan is discussed with the patient and cardiology team (Nurse Practitioner) Dr. White will take over the neurology coverage tomorrow AM. Ez Pa M.D. Neuro-hospitalist Time with Patient: Less than 30
[2021-01-08] MEDS ORDERED: ASPIRIN 325 MG TAB PO SCH (13:10)
[2021-01-08 16:58] LABS: Glucose,Whole Blood 79 mg/dL (75-99)
[2021-01-08 19:59] LABS: Glucose,Whole Blood 108 mg/dL (75-99)
[2021-01-08] MEDS: SODIUM CHLORIDE 0.9% 1,000 ML IV SCH ×2 (20:40→20:49)
[2021-01-08] MEDS: Bictegrav/Emtricit/Tenofov Ala [Biktarvy 50-200-25 Mg Tablet] PO SCH (20:50)
[2021-01-08] MEDS: AMITRIPTYLINE HCL 10 MG TAB PO SCH (20:50)
[2021-01-08] MEDS: lisinopriL 10 MG TAB PO SCH (20:50)
[2021-01-08] MEDS: ATORVASTATIN 40 MG TAB PO SCH (20:50)
[2021-01-08] MEDS ORDERED: LORazepam 2 MG/ML INJ IV PRN (21:45)
[2021-01-09] MEDS: SODIUM CHLORIDE 0.9% 1,000 ML IV SCH ×3 (05:55→17:54)
[2021-01-09 06:00] LABS: Glucose,Whole Blood 110 mg/dL (75-99)
[2021-01-09] MEDS ORDERED: fentaNYL (PF) 50 MCG/ML 2 ML AMP ONE (07:22)
[2021-01-09] MEDS ORDERED: IV FLUID CONTINUATION 900 ML IV ONE (07:31)
[2021-01-09] MEDS ORDERED: BENZOCAINE SPRAY 1 CAN TOPICAL ONE (07:38)
[2021-01-09] MEDS ORDERED: MIDAZOLAM 2 MG/2 ML VIAL IV ONE ×2 (07:38→07:43)
[2021-01-09] MEDS ORDERED: fentaNYL (PF) 50 MCG/ML 2 ML AMP IV ONE (07:40)
--- NOTE | 2021-01-09 08:36 | ECHOT ---
TRANSESOPHAGEAL ECHOCARDIOGRAM INDICATION: Evaluation of cardiac source for CVA. PROCEDURE: After explaining the procedure to the patient, its risks and the complications, his blood pressure, heart rate, O2 saturation were monitored. The throat was sprayed with Cetacaine. He received 3 mg intravenous Versed, 50 mcg intravenous fentanyl. The probe was introduced in the esophagus without difficulty. Images were obtained. Following that, the probe was removed. There was no immediate complication. FINDINGS: The left atrial size is normal. Left atrial appendage is normal. Left ventricular size and systolic function normal. The aortic valve revealed mild thickening of the aortic valve cusps. The mitral valve revealed mild thickening of the mitral valve leaflets. The tricuspid valve is normal. Descending thoracic aorta appears to be normal. No pericardial effusion was noted. Contrast bubble study revealed no evidence of shunting across the interatrial septum. Doppler pulse wave and color Doppler obtained revealed mild mitral with trace tricuspid regurgitation. There was no shunting by color Doppler study. CONCLUSION: 1. Normal left atrial appendage. 2. Normal left ventricular size and systolic function. 3. Mild thickening of the mid aortic and mitral valve. 4. Mild mitral regurgitation. 5. No shunting across the interatrial septum. 6. No cardiac source for thrombus noted. MMODL / IJN: [id number] /
[2021-01-09 08:56] LABS: Basophils % (A) 0 %; Eosinophils # (A) 0.1 k/uL (0-0.7); Eosinophils % (A) 2 %; HGB 14.4 gm/dL (13.0-17.5); Lymphocytes # (A) 1.3 k/uL (1.0-4.8); Lymphocytes % (A) 26 %; MCH 27.4 pg (25.0-35.0); MCHC 33.4 g/dL (31.0-37.0); Mean Platelet Volume 7.5; Monocytes # (A) 0.2 k/uL (0-1.0); Monocytes % (A) 5 %; Neutrophils # (A) 3.4 k/uL (1.3-7.7); Neutrophils % (A) 66 %; Platelet Count 200 k/uL (150-450); RBC 5.25 m/uL (4.30-5.90); RDW 15.2 % (11.5-15.5); WBC 5.1 k/uL (3.8-10.6)
[2021-01-09] MEDS: ASPIRIN 81 MG PO SCH (09:14)
[2021-01-09] MEDS: CLOPIDOGREL 75 MG TAB PO SCH (09:14)
[2021-01-09] MEDS: HEPARIN SODIUM,PORCINE/PF 5,000 UNIT/0.5 ML SYRINGE SQ SCH ×2 (09:14→20:19)
[2021-01-09] MEDS: glipiZIDE 5 MG TAB PO SCH ×2 (09:14→20:18)
[2021-01-09 09:17] LABS: African American GFR (CKD) >90 (>60 ml/min/1.73 sqM); Anion Gap 10 mmol/L; Blood Urea Nitrogen 16 mg/dL (9-20); Calcium 9.3 mg/dL (8.4-10.2); Carbon Dioxide 23 mmol/L (22-30); Chloride 106 mmol/L (98-107); Glucose 119 mg/dL (74-99); Non-African American GFR(CKD) >90 (>60 ml/min/1.73 sqM); Potassium 4.4 mmol/L (3.5-5.1); Sodium 139 mmol/L (137-145)
[2021-01-09] MEDS: PIOGLITAZONE 30 MG TAB PO SCH (09:17)
[2021-01-09] MEDS: FAMCICLOVIR 500 MG TAB PO SCH ×2 (09:18→20:18)
[2021-01-09] MEDS: Canagliflozin [Invokana] PO SCH (09:18)
[2021-01-09] MEDS: FOSAMPRENAVIR CALCIUM PO SCH ×2 (09:18→20:18)
--- NOTE | 2021-01-09 10:56 | ECHOF ---
Referral Reason:Thrombus MEASUREMENTS -------- HEIGHT: 175.3 cm WEIGHT: 63.0 kg BP: RVIDd: 2.8 cm (< 3.3) IVSd: 1.2 cm (0.6 - 1.1) LVIDd: 4.0 cm (3.9 - 5.3) LVPWd: 1.1 cm (0.6 - 1.1) IVSs: 1.5 cm LVIDs: 2.8 cm LVPWs: 1.4 cm LA Diam: 3.2 cm (2.7 - 3.8) LAESV Index (A-L): 19.10 ml/m Ao Diam: 3.6 cm (2.0 - 3.7) AV Cusp: 1.8 cm (1.5 - 2.6) MV EXCURSION: 19.132 mm (> 18.000) MV EF SLOPE: 69 mm/s (70 - 150) EPSS: 1.0 cm MV E Fly: 0.73 m/s MV DecT: 178 ms MV A Fly: 0.95 m/s MV E/A Ratio: 0.77 RAP: 5.00 mmHg RVSP: 15.17 mmHg FINDINGS -------- Sinus rhythm. This was a technically good study. The left ventricular size is normal. There is mild concentric left ventricular hypertrophy. Overa ll left ventricular systolic function is normal with, an EF between 55 - 60 %. The right ventricle is normal in size. The left atrial size is normal. The right atrial size is normal. There is mild aortic valve sclerosis. Mild mitral regurgitation is present. Mild tricuspid regurgitation present. Right ventricular systolic pressure is normal at < 35 mmHg. There is no pulmonic regurgitation present. The aortic root size is normal. There is no pericardial effusion. CONCLUSIONS -------- 1. The left ventricular size is normal. 2. There is mild concentric left ventricular hypertrophy. 3. Overall left ventricular systolic function is normal with, an EF between 55 - 60 %. 4. The right ventricle is normal in size. 5. The left atrial size is normal. 6. The right atrial size is normal. 7. There is mild aortic valve sclerosis. 8. Mild mitral regurgitation is present. 9. Mild tricuspid regurgitation present. 10. There is no pulmonic regurgitation present. 11. The aortic root size is normal. 12. There is no pericardial effusion. WORKFORCE DEVELOPMENT SPECIALIST: Shiela Cui RDCS
[2021-01-09 11:51] LABS: Glucose,Whole Blood 133 mg/dL (75-99)
--- NOTE | 2021-01-09 11:59 | P.TEE ---
Description of Procedure(s): Procedure performed: Transesophageal Echocardiogram with color flow doppler, pulsed wave doppler and continuous wave doppler, moderate conscious sedation Moderate conscious sedation: Moderate conscious sedation was supplied with direct supervision of myself using Versed and Fentanyl. Complications: none Indications: Cryptogenic stroke History: Is a pleasant 55-year-old male with history of tobacco abuse, family history of stroke and NM who presented with hemiparesis and received TPA. His symptoms have improved however there was concern about cardiogenic source of emboli and therefore MEAGAN was recommended. PROCEDURE: After the risks, benefits and alternatives of the above mentioned procedure was explained in detail with the patient, informed consent was obtained. Patient was brought to the lab in a fasting state. Patient was given IV Versed and Fentanyl for sedation. The throat was sprayed with [place] to anesthetize the throat. A lubricated Omni probe was then introduced into the esophagus and stomach and multiple views were obtained. 2D echo with color flow doppler, pulsed wave doppler and continuous wave doppler was utilized. Agitated saline bubbles were injected to assess for any intra-atrial shunt. The probe was then removed. Patient tolerated the procedure well. Patient was transferred to the post procedure area in stable and satisfactory condition. FINDINGS: 1. The aortic valve is tricuspid and function normally, no aortic stenosis or aortic insufficiency. 2. The mitral valve appears be normal with mild mitral regurgitation. 3. Tricuspid valve appears to be normal without significant tricuspid regurgitation. 4. There is a long tunneled PFO with + bubble study. No flow by color Doppler 5. Left atrial appendage is free of clot. 6. Left ventricular size and function appear to be normal with ejection fraction 55-60%.
--- NOTE | 2021-01-09 12:42 | P.CRDCN ---
History of Present Illness History of present illness: HISTORY OF PRESENTING ILLNESS This is a pleasant 55-year-old male past medical history significant for diabetes mellitus, HIV since 1994, neuropathy, lipid dystrophy and hyperlipidemia who presented emergency department on 01/07/2021 for left-sided weakness which started 3 days prior. He woke up and suddenly had left leg weakness and numbness. He later fell down the stairs, does not fully recall the episode. Next day he noticed he was having difficulty using his left hand to eat with utensils. He symptoms continued to worsen and presented to the emergency department. CT revealed evolving acute infarct of the right parietal occipital region extending into the posterior superior temporal lobe. He does not follow with a leather scraper. We have been asked to see in consultation for MEAGAN. Patient is seen and examined at bedside, no current complaints, no acute distress. Beth skaggs underwent MEAGAN yesterday with Dr. Thapa, this revealed a normal left atrial appendage, normal left ventricular size and systolic function, mild thickening of the mid aortic and mitral valve, mild MR, no shunting, no cardiac source for thrombus noted. DIAGNOSTICS 2D Echocardiogram - EF between 5560 percent, mild aortic valve sclerosis, mild MR, mild TR EKG reveals sinus rhythm, heart rate 85 T wave inversion lead aVL, Right axis deviation, slow R wave progression. No prior EKG to compare. Telemetry tracings indicate sinus mechanism HR 60-80s, no episodes of arrhythmia Chest xray No acute cardiopulmonary process Laboratory reviewed, CBC unremarkable, sodium 139, potassium 4.4, serum creatinine 0.8, BUN 16, TSH within normal limits, troponin negative 1, Hgb A1C- 8.0, covid-19 negative Current home cardiac medications include lisinopril 10 mg nightly, atorvastatin 10 mg nightly REVIEW OF SYSTEMS At the time of my exam: CONSTITUTIONAL: Denies fever or chills. CARDIOVASCULAR: Denies chest pain, shortness of breath, orthopnea, PND or palpitations. RESPIRATORY: Denies cough. GASTROINTESTINAL: Denies abdominal pain, diarrhea, constipation, nausea or vomiting. MUSCULOSKELETAL: Denies myalgias. NEUROLOGIC: +left sided weakness, +left sided numbness ENDOCRINE: Denies fatigue, weight change, polydipsia or polyurina. GENITOURINARY: Denies burning, hematuria or urgency with micturation. HEMATOLOGIC: Denies history of anemia or bleeding. PHYSICAL EXAMINATION Blood [id number] heart rate 92 afebrile and maintaining oxygen saturation on room air 98% CONSTITUTIONAL: No apparent distress. HEENT: Head is normocephalic. Pupils are equal, round. Sclerae anicteric. Mucous membranes of the mouth are moist. No JVD. No carotid bruit. CHEST EXAMINATION: Lungs are clear to auscultation. No chest wall tenderness is noted on palpation or with deep breathing. HEART EXAMINATION: Regular rate and rhythm. S1, S2 heard. No murmurs, gallops or rub. ABDOMEN: Soft, nontender. Positive bowel sounds. EXTREMITIES: 2+ peripheral pulses, no lower extremity edema and no calf tenderness. NEUROLOGIC EXAMINATION: Patient is awake, alert and oriented x3. ASSESSMENT Acute Ischemic stroke over the right parietal, occipital extending into the posterior superior temporal lobe Type 2 Diabetes HIV Dyslipidemia History of hypertension PLAN MEAGAN completed yesterday by Dr. Thapa which revealed no cardiac source for thrombus noted. We will sign off at this time. Please reach out for any further questions or concerns. Thank you kindly for this consultation Nurse Practitioner note has been reviewed, I agree with a documented findings and plan of care. Patient was seen and examined. Past Medical History Past Medical History: Cancer, Diabetes Mellitus, Hyperlipidemia Additional Past Medical History / Comment(s): AIDS, vertigo, neurophathy, Rectal CA - last surgery History of Any Multi-Drug Resistant Organisms: None Reported Past Surgical History: Tonsillectomy Additional Past Surgical History / Comment(s): Rectal cancer-surgery Past Anesthesia/Blood Transfusion Reactions: No Reported Reaction Smoking Status: Former smoker - Past Family History Mother Family Medical History: Renal Disease Father Family Medical History: Diabetes Mellitus, Hyperlipidemia, Hypertension, Myocardial Infarction ([place]) Medications and Allergies Home Medications Medication Instructions Recorded Confirmed Type Amitriptyline HCl [Elavil] 10 mg PO HS 01/07/21 01/07/21 History Atorvastatin Calcium [Lipitor] 10 mg PO HS 01/07/21 01/07/21 History Bictegrav/Emtricit/Tenofov Ala 1 tab PO HS 01/07/21 01/07/21 History [Biktarvy 50-200-25 mg Tablet] Canagliflozin [Invokana] 300 mg PO DAILY 01/07/21 01/07/21 History Famciclovir [Famvir] 500 mg PO BID 01/07/21 01/07/21 History Fosamprenavir Calcium [Lexiva] 1,400 mg PO BID 01/07/21 01/07/21 History Gabapentin 800 mg PO TID 01/07/21 01/07/21 History Ibuprofen [Motrin Ib] 400 mg PO Q8H PRN 01/07/21 01/07/21 History Lisinopril [Zestril] 10 mg PO HS 01/07/21 01/07/21 History Pioglitazone [Actos] 30 mg PO DAILY 01/07/21 01/07/21 History Terazosin [Hytrin] 2 mg PO DAILY 01/07/21 01/07/21 History Testosterone [Androgel 1.62% Gel 2 pump TOPICAL DAILY 01/07/21 01/07/21 History Pump] glipiZIDE [Glucotrol] 7.5 mg PO BID 01/07/21 01/07/21 History metFORMIN HCL [Glucophage] 500 mg PO AC-BID 01/07/21 01/07/21 History Allergies Allergy/AdvReac Type Severity Reaction Status Date / Time abacavir Allergy 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 zidovudine [From Retrovir] Allergy 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 Physical Exam Vitals: Vital Signs Temp Pulse Resp BP Pulse Ox 01/09/21 03:32 98.4 F 78 16 156/99 98 01/09/21 00:00 98.2 F 78 16 129/84 96 01/08/21 20:00 98.3 F 74 18 158/97 98 01/08/21 16:00 97.7 F 79 16 117/78 96 01/08/21 12:00 97.9 F 81 18 130/83 97 01/08/21 08:30 97.9 F 76 16 133/87 99 Intake and Output 01/08/21 01/09/21 01/09/21 22:59 06:59 14:59 Intake Total 780 0 Balance 780 0 Intake: Oral 780 0 Other: Voiding Method Toilet Toilet # Voids 1 1 Weight 63.5 kg Results 01/09/21 07:11 01/09/21 07:11 Lipids 01/08/21 Range/Units 08:55 Triglycerides 236 H (<150) mg/dL Cholesterol 183 (<200) mg/dL HDL Cholesterol 33 L (40-60) mg/dL Current Medications Generic Name Dose Route Start Last Admin Trade Name Freq PRN Reason Stop Dose Admin Amitriptyline HCl 10 mg 01/07/21 21:00 01/08/21 20:50 Amitriptyline Hcl 10 Mg Tab PO 10 mg HS MAGGI Administration Aspirin 81 mg 01/09/21 09:00 Aspirin 81 Mg PO DAILY MAGGI Atorvastatin Calcium 40 mg 01/08/21 21:00 01/08/21 20:50 Atorvastatin 40 Mg Tab PO 40 mg HS MAGGI Administration Clopidogrel Bisulfate 75 mg 01/08/21 09:00 01/08/21 08:35 Clopidogrel 75 Mg Tab PO 75 mg DAILY MAGGI Administration Famciclovir 500 mg 01/07/21 21:00 01/08/21 20:50 Famciclovir 500 Mg Tab PO 500 mg BID MAGGI Administration Glipizide 7.5 mg 01/07/21 21:00 01/08/21 20:51 Glipizide 5 Mg Tab PO 7.5 mg BID MAGGI Administration Heparin Sodium (Porcine) 5,000 unit 01/07/21 21:00 01/08/21 20:50 Heparin Sodium,Porcine/Pf 5,000 Unit/0.5 Ml Syringe SQ 5,000 unit Q12HR MAGGI Administration Sodium Chloride 1,000 mls @ 100 mls/hr 01/07/21 13:15 01/09/21 05:55 Saline 0.9% IV 100 mls/hr .Q10H MAGGI Administration Lisinopril 10 mg 01/07/21 21:00 01/08/21 20:50 Lisinopril 10 Mg Tab PO 10 mg HS MAGGI Administration Lorazepam 1 mg 01/08/21 21:45 Lorazepam 2 Mg/Ml Inj IV ONCE PRN Anxiety Bictegrav/Emtricit/ 1 tab 01/07/21 21:00 01/08/21 20:50 Tenofov Ala [ PO 1 tab Biktarvy 50-200-25 HS MAGGI Administration Mg Tablet] Canagliflozin [ 300 mg 01/07/21 16:00 01/08/21 08:35 Invokana] PO 300 mg DAILY MAGGI Administration Fosamprenavir 1,400 mg 01/07/21 21:00 01/08/21 20:50 Calcium [Lexiva] 700 PO 1,400 mg Mg Tablet BID MAGGI Administration Pioglitazone HCl 30 mg 01/08/21 09:00 01/08/21 08:43 Pioglitazone 30 Mg Tab PO 30 mg DAILY MAGGI Administration Intake and Output 01/08/21 01/09/21 01/09/21 22:59 06:59 14:59 Intake Total 780 0 Balance 780 0 Intake: Oral 780 0 Other: Voiding Method Toilet Toilet # Voids 1 1 Weight 63.5 kg 01/07/21 10:55 01/07/21 10:55
[2021-01-09 16:37] LABS: Glucose,Whole Blood 112 mg/dL (75-99)
[2021-01-09] MEDS ORDERED: LORazepam 2 MG/ML INJ IV PRN (17:00)
--- NOTE | 2021-01-09 17:14 | MR ---
MR brain without contrast HISTORY: Stroke, left-sided weakness Multiplanar multisequence imaging through the brain, correlation to CT brain 01/08/2021 There is restricted diffusion involving the medial right temporal lobe extending to the inferior occi pital lobe, corresponding hyperintensity present on inversion recovery T2-weighted sequences. There i s no evident hemorrhage or hydrocephalus. Corpus callosum, cervical medullary junction are within nor mal limits, suspect a partially empty sella. The orbits show symmetric appearance. Inflammatory strong e present within the right maxillary sinus, ethmoid air cells. Fast brain protocol was utilized due t o patient's claustrophobia. IMPRESSION: Subacute infarct. Sinus disease.
[2021-01-09 20:07] LABS: Glucose,Whole Blood 140 mg/dL (75-99)
[2021-01-09] MEDS: lisinopriL 10 MG TAB PO SCH (20:17)
[2021-01-09] MEDS: ATORVASTATIN 40 MG TAB PO SCH (20:17)
[2021-01-09] MEDS: Bictegrav/Emtricit/Tenofov Ala [Biktarvy 50-200-25 Mg Tablet] PO SCH (20:18)
[2021-01-09] MEDS: AMITRIPTYLINE HCL 10 MG TAB PO SCH (20:20)
--- NOTE | 2021-01-10 00:30 | P.PN ---
Subjective Progress Note Date: 01/08/21 Principal diagnosis: Acute ischemic CVA involving the right parieto-occipital region extending into the posterior superior temporal lobe. Developed symptoms 3 days ago Patient is a 55-year-old male with a known history of hyperlipidemia, diabetes type 2, HIV on antiretroviral therapy, diabetic peripheral neuropathy, rectal cancer status post surgery and previous history of smoking presents to ER with the complaints of left-sided weakness. Patient states that she got out of bed 3 days ago and felt left leg weakness and giveaway and subsequently he fell x3. He did strike his back of his head with small laceration bleeding which was resolved. Denies any expressive aphasia. No facial droop. Patient thought that it would resolve and there has been no improvement until today. He contacted his primary care physician who recommended to call EMS and go to ER. Patient is also complaining of some visual changes and could not see things on the left side. 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 Otherwise denied any complaints of fever or chills. No nausea vomiting abdominal pain. No diarrhea or dysuria. No recent illnesses or sick contacts. No recent travel. Chest x-ray showed no acute cardiopulmonary process CT head showed no acute intracranial hemorrhage or midline shift. There is mild diffuse age-related cerebral atrophy. Nonspecific vague area of low-attenuation right parieto-occipital region extending into the posterior superior temporal lobe suspicious for evolving acute infarct. CT angiogram of the head and neck showed mild plaque bilateral carotid bulb level. No significant stenosis in the common internal carotid arteries bilaterally. No significant stenosis or aneurysm in the level of the [place]. EKG showed normal sinus rhythm Blood pressure is 142/95 pulse 88 and pulse ox 99% on room air. 01/08/2021 Patient is awake alert oriented x3. Able to ambulate to the bathroom. Left- sided weakness is better. Still having left eye visual disturbance. No complaints of headache. No chest pain or shortness breath. Patient is scheduled for MRI and MEAGAN tomorrow. PT OT and LOW PRESSURE FIRER was consulted. Continued on telemetry monitoring. Continue with aspirin Plavix and statins. Current medications reviewed. Objective - Vital Signs Vital signs: Vital Signs Temp 97.9 F 01/08/21 12:00 Pulse 81 01/08/21 12:00 Resp 18 01/08/21 12:00 BP 130/83 01/08/21 12:00 Pulse Ox 97 01/08/21 12:00 Intake & Output 01/07/21 01/08/21 01/08/21 18:59 06:59 18:59 Intake Total 118 358 Balance 118 358 Weight 68.039 kg 68.8 kg Intake: Oral 118 358 Other: Voiding Method Toilet Toilet # Voids 1 - Exam PHYSICAL EXAMINATION: Patient is lying in the bed comfortably, no acute distress, awake alert and oriented.. HEENT: Normocephalic. Neck is supple. Pupils reactive. Nostrils clear. Oral cavity is moist. Ears reveal no drainage. Neck reveals no JVD, carotid bruits, or thyromegaly. CHEST EXAMINATION: Trachea is central. Symmetrical expansion. Lung argueta clear to auscultation and percussion. CARDIAC: Normal S1, S2 with no gallops. No murmurs ABDOMEN: Soft. Bowel sounds normal. No organomegaly. No abdominal bruits. Extremities: reveal no edema. No clubbing or cyanosis Neurologically awake, alert, oriented x3 Patient does left leg weakness more compared to right leg. Cranial nerves intact. Skin: No rash or skin lesions. Psychiatric: Coperative. Nonsuicidal Musculoskeletal: No joint swelling or deformity. Normal range of motion. - Labs CBC & Chem 7: 01/09/21 07:11 01/09/21 07:11 Labs: Abnormal Lab Results - Last 24 Hours (Table) 01/07/21 01/07/21 01/08/21 Range/Units 10:55 19:54 02:37 POC Glucose (mg/dL) 124 H 61 L (75-99) mg/dL Hemoglobin A1c 8.0 H (4.0-6.0) % Triglycerides (<150) mg/dL LDL Cholesterol, Calc (0-99) mg/dL HDL Cholesterol (40-60) mg/dL 01/08/21 01/08/21 01/08/21 Range/Units 06:12 08:55 11:41 POC Glucose (mg/dL) 135 H 116 H (75-99) mg/dL Hemoglobin A1c (4.0-6.0) % Triglycerides 236 H (<150) mg/dL LDL Cholesterol, Calc 103 H (0-99) mg/dL HDL Cholesterol 33 L (40-60) mg/dL Assessment and Plan Assessment: Acute ischemic CVA involving the right parieto-occipital region extending into the posterior superior temporal lobe. Developed symptoms 3 days ago Left leg weakness and numbness Left eye visual disturbance Diabetes type 2 [id number] HIV currently on antiretroviral therapy Diabetic peripheral neuropathy History of rectal cancer status post surgery Previous history of smoking DVT prophylaxis. Plan: Patient will be continued telemetry monitoring. Was given aspirin and statin dose. Continue with neurochecks. Stroke work-up was ordered. 2D echocardiogram and lipid panel. Neurology is on board. TSH level within normal limits. Speech and swallow evaluation PT OT will be consulted. Continue with aspirin and statins. Further recommendations based on clinical course. Time with Patient: Greater than 30
--- NOTE | 2021-01-10 00:32 | P.PN ---
Subjective Progress Note Date: 01/09/21 Principal diagnosis: Acute ischemic CVA involving the right parieto-occipital region extending into the posterior superior temporal lobe. Developed symptoms 3 days ago Patient is a 55-year-old male with a known history of hyperlipidemia, diabetes type 2, HIV on antiretroviral therapy, diabetic peripheral neuropathy, rectal cancer status post surgery and previous history of smoking presents to ER with the complaints of left-sided weakness. Patient states that she got out of bed 3 days ago and felt left leg weakness and giveaway and subsequently he fell x3. He did strike his back of his head with small laceration bleeding which was resolved. Denies any expressive aphasia. No facial droop. Patient thought that it would resolve and there has been no improvement until today. He contacted his primary care physician who recommended to call EMS and go to ER. Patient is also complaining of some visual changes and could not see things on the left side. 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 Otherwise denied any complaints of fever or chills. No nausea vomiting abdominal pain. No diarrhea or dysuria. No recent illnesses or sick contacts. No recent travel. Chest x-ray showed no acute cardiopulmonary process CT head showed no acute intracranial hemorrhage or midline shift. There is mild diffuse age-related cerebral atrophy. Nonspecific vague area of low-attenuation right parieto-occipital region extending into the posterior superior temporal lobe suspicious for evolving acute infarct. CT angiogram of the head and neck showed mild plaque bilateral carotid bulb level. No significant stenosis in the common internal carotid arteries bilaterally. No significant stenosis or aneurysm in the level of the [place]. EKG showed normal sinus rhythm Blood pressure is 142/95 pulse 88 and pulse ox 99% on room air. 01/08/2021 Patient is awake alert oriented x3. Able to ambulate to the bathroom. Left- sided weakness is better. Still having left eye visual disturbance. No complaints of headache. No chest pain or shortness breath. Patient is scheduled for MRI and MEAGAN tomorrow. PT OT and DAIRY FEED WORKER was consulted. Continued on telemetry monitoring. Continue with aspirin Plavix and statins. 01/09/2021 Patient is currently lying in bed comfortably. No chest pain or shortness of breath. Left eye visual disturbances better. Left leg weakness is much improved. Able to swallow and no slurred speech. No headache or dizziness. MEAGAN showed no source of cardiac emboli. Patient is being continued on aspirin statins and Plavix. Neurology is on board. MRI scheduled for today. Current medications reviewed. Objective - Vital Signs Vital signs: Vital Signs Temp 97.9 F 01/09/21 20:00 Pulse 79 01/09/21 20:00 Resp 16 01/09/21 20:00 BP 142/86 01/09/21 20:00 Pulse Ox 97 01/09/21 20:00 Intake & Output 01/09/21 01/09/21 01/10/21 06:59 18:59 06:59 Intake Total 780 510 Output Total 200 Balance 780 510 -200 Weight 63.5 kg Intake: IV 150 Intake, IV Titration 120 Amount Sodium Chloride 0.9% 1, 120 000 ml @ 20 mls/hr IV . Q24H [facility] Rx#:[id number] Oral 780 240 Output: Urine 200 Other: Voiding Method Toilet # Voids 1 - Exam PHYSICAL EXAMINATION: Patient is lying in the bed comfortably, no acute distress, awake alert and oriented.. HEENT: Normocephalic. Neck is supple. Pupils reactive. Nostrils clear. Oral cavity is moist. Ears reveal no drainage. Neck reveals no JVD, carotid bruits, or thyromegaly. CHEST EXAMINATION: Trachea is central. Symmetrical expansion. Lung argueta clear to auscultation and percussion. CARDIAC: Normal S1, S2 with no gallops. No murmurs ABDOMEN: Soft. Bowel sounds normal. No organomegaly. No abdominal bruits. Extremities: reveal no edema. No clubbing or cyanosis Neurologically awake, alert, oriented x3 Patient does left leg weakness more compared to right leg. Cranial nerves intact. Skin: No rash or skin lesions. Psychiatric: Coperative. Nonsuicidal Musculoskeletal: No joint swelling or deformity. Normal range of motion. - Labs CBC & Chem 7: 01/09/21 07:11 01/09/21 07:11 Labs: Abnormal Lab Results - Last 24 Hours (Table) 01/09/21 01/09/21 01/09/21 Range/Units 05:59 07:11 11:30 Glucose 119 H (74-99) mg/dL POC Glucose (mg/dL) 110 H 133 H (75-99) mg/dL 01/09/21 01/09/21 Range/Units 16:28 20:06 Glucose (74-99) mg/dL POC Glucose (mg/dL) 112 H 140 H (75-99) mg/dL Assessment and Plan Assessment: Acute ischemic CVA involving the right parieto-occipital region extending into the posterior superior temporal lobe. Developed symptoms 3 days ago Left leg weakness and numbness Left eye visual disturbance Diabetes type 2 [id number] HIV currently on antiretroviral therapy Diabetic peripheral neuropathy History of rectal cancer status post surgery Previous history of smoking DVT prophylaxis. Plan: Patient will be continued telemetry monitoring. Was given aspirin and statin dose. Continue with aspirin statin and Plavix. Continue with neurochecks. Stroke work-up was ordered. MEAGAN showed no cardiac embolic source.. Neurology is on board. TSH level within normal limits. Speech and swallow evaluation PT OT was consulted. Further recommendations based on clinical course. Time with Patient: Greater than 30
[2021-01-10 04:19] VITALS: RESP 16
[2021-01-10] MEDS: SODIUM CHLORIDE 0.9% 1,000 ML IV SCH ×2 (04:23→08:55)
[2021-01-10 05:54] LABS: Glucose,Whole Blood 108 mg/dL (75-99)
--- NOTE | 2021-01-10 08:10 | P.PN ---
Subjective Progress Note Date: 01/09/21 Patient was seen for a follow-up. Patient initially seen by Dr. Ez Pa. Please refer to his note for details. Patient came to the hospital on 01/07/2021 with left-sided weakness, gait instability and left-sided visual field deficits. Symptoms have been present for 3 days, therefore he was not a candidate for TPA. CT head showed right parietal occipital infarct. No hemorrhage. CTA of was negative for occlusion or aneurysm. Patient says that he does take aspirin 81 mg daily. Patient also has HIV since 1994, which is controlled. He denies any tobacco or alcohol use. At present patient denies any numbness tingling. He states that he has regained all strength. Still has problem with the vision. Telemetry monitoring so far showing sinus rhythm, sinus tachycardia with PVCs. Objective - Vital Signs Vital signs: Vital Signs Temp 98.4 F 01/09/21 03:32 Pulse 72 01/09/21 08:09 Resp 14 01/09/21 08:09 BP 157/97 01/09/21 08:09 Pulse Ox 98 01/09/21 08:09 Intake & Output 01/08/21 01/09/21 01/09/21 18:59 06:59 18:59 Intake Total 358 780 150 Balance 358 780 150 Weight 63.5 kg Intake: IV 150 Oral 358 780 0 Other: Voiding Method Toilet Toilet # Voids 3 1 - Exam Patient is a middle aged male, in no distress. Patient is alert awake oriented to time place and person. Speech and language functions are normal. Attention, concentration and fund of knowledge is adequate. Patient knows it is December and the year is 2020 and that he is in [facility]. On cranial examination, pupils are round and reacting to light, visual argueta reveal left homonymous hemianopia, which is slightly better in the middle of the left visual field, but more prominent in the upper and lower quadrants. Extraocular muscles are intact with no nystagmus. Face is symmetric, tongue protrudes to the midline. Palatal elevation and sensation normal, hearing and shoulder shrug normal, facial sensation normal. Shoulder shrug normal. On muscle strength testing, there is no pronator drift and the strength is normal in arms and legs distally and proximally. Deep tendon reflexes are 2+ Sensory to touch is equal with no neglect. Cerebellar function showed no ataxia for cctjql-ax-rbra testing. No dysdiadochokinesia. Tone and bulk of muscles normal. Gait normal. On general examination, there is no carotid bruit or murmur, S1-S2 audible. Abdomen is soft nontender. Chest is clear. Peripheral pulses are present. No edema. - Labs CBC & Chem 7: 01/09/21 07:11 01/09/21 07:11 Labs: Abnormal Lab Results - Last 24 Hours (Table) 01/08/21 01/08/21 01/08/21 Range/Units 08:55 11:41 19:58 POC Glucose (mg/dL) 116 H 108 H (75-99) mg/dL Triglycerides 236 H (<150) mg/dL LDL Cholesterol, Calc 103 H (0-99) mg/dL HDL Cholesterol 33 L (40-60) mg/dL 01/09/21 Range/Units 05:59 POC Glucose (mg/dL) 110 H (75-99) mg/dL Triglycerides (<150) mg/dL LDL Cholesterol, Calc (0-99) mg/dL HDL Cholesterol (40-60) mg/dL Assessment and Plan Assessment: * Acute ischemic stroke over the right parietal, occipital extending into the posterior superior temporal lobe (symptoms began 3 days prior to hospital presentation with left upper and lower extremity weakness and numbness and Left homonymous hemianopsia). 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 of the head is reported as no acute intracranial hemorrhage or midline shift. There is mild diffuse age-related cerebral atrophy. Nonspecific vague area of low attenuation right parietal occipital region extending into the posterosuperior temporal lobe suspicious for evolving acute infarct. CT angiography of the head and neck was reported as mild plaque bilateral carotid bulb level. No significant stenosis in common or internal carotid artery bilaterally. No significant stenosis or aneurysm at the level of [place] of [place] Repeat CT of the head 01/08/2021 Was reported as no acute intracranial hemorrhage or midline shift. There is confirmation of evolving acute nonhemorr hagic infarct inferior right parietal occipital region was superior medial temporal extension. Lipid panel: Triglyceride of 236, cholesterol 183, LDL is 103 and HDL 33 with a goal of LDL less than 70. TSH: 0.797 (normal), Hemoglobin A1c 8.0. Suggest optimize control of diabetes to target A1c <7.0. Continue ASA 81mg daily and Plavix 75mg daily for now. Continue Lipitor 40 mg qhs. 2-D echo revealed normal left and bursitis, mild concentric LVH, EF is 55-60%. MEAGAN was performed today, which revealed normal left atrial appendage, normal left ventricle size and systolic function. Mild thickening of mid aortic and mitral valve. Mild MR. No shunting across interatrial septum. No cardiac sour ce of thrombus noted. PT OT Addendum: MRI of the brain revealed subacute infarct involving the right medial occipital lobe, medial temporal lobe including right-sided splenium, with no hemorrhage, paranasal sinus disease Continue above treatment. Neurologically clear for discharge. Follow-up with outpatient neurologist in 1-2 weeks.
[2021-01-10] MEDS: FOSAMPRENAVIR CALCIUM PO SCH (08:54)
[2021-01-10] MEDS: FAMCICLOVIR 500 MG TAB PO SCH (08:54)
[2021-01-10] MEDS: ASPIRIN 81 MG PO SCH (08:54)
[2021-01-10] MEDS: PIOGLITAZONE 30 MG TAB PO SCH (08:54)
[2021-01-10] MEDS: HEPARIN SODIUM,PORCINE/PF 5,000 UNIT/0.5 ML SYRINGE SQ SCH (08:54)
[2021-01-10] MEDS: Canagliflozin [Invokana] PO SCH (08:54)
[2021-01-10] MEDS: glipiZIDE 5 MG TAB PO SCH (08:54)
[2021-01-10] MEDS: CLOPIDOGREL 75 MG TAB PO SCH (08:56)
[2021-01-10 11:05] VITALS: BP 144/84; TEMP 98.8
[2021-01-10 11:28] LABS: Glucose,Whole Blood 102 mg/dL (75-99)
[2021-01-10 14:22] VITALS: PULSE 88
== END 2021-01-10 15:33 | disposition home health service (06) | DRG 65 ==
LOC: EC 10:22 → 3SCARD 13:09
PROVIDERS: ADMIT Internal Medicine; ATTEND Internal Medicine
PROC: B24BZZ4 Ultrasonography of Heart with Aorta, Transesophageal (ICD-10-PCS; principal; 2021-01-09 11:50)
DX: I63.531 Cerebral infarction due to unspecified occlusion or stenosis of right posterior cerebral artery (principal); B20 Human immunodeficiency virus [HIV] disease; G81.94 Hemiplegia, unspecified affecting left nondominant side; R64 Cachexia; R26.89 Other abnormalities of gait and mobility; I63.59 Cerebral infarction due to unspecified occlusion or stenosis of other cerebral artery; E78.5 Hyperlipidemia, unspecified; H53.462 Homonymous bilateral field defects, left side; Z20.822 Contact with and (suspected) exposure to COVID-19; R20.0 Anesthesia of skin; I08.3 Combined rheumatic disorders of mitral, aortic and tricuspid valves; G62.0 Drug-induced polyneuropathy; I49.3 Ventricular premature depolarization; E88.1 Lipodystrophy, not elsewhere classified; E11.42 Type 2 diabetes mellitus with diabetic polyneuropathy; T37.5X5A Adverse effect of antiviral drugs, initial encounter; I11.9 Hypertensive heart disease without heart failure; R29.702 NIHSS score 2; Z68.20 Body mass index [BMI] 20.0-20.9, adult; Z79.84 Long term (current) use of oral hypoglycemic drugs; Z79.899 Other long term (current) drug therapy; Z88.3 Allergy status to other anti-infective agents; Z85.048 Personal history of other malignant neoplasm of rectum, rectosigmoid junction, and anus; Z90.89 Acquired absence of other organs; Z87.891 Personal history of nicotine dependence; Z91.81 History of falling; Z98.890 Other specified postprocedural states; Z84.1 Family history of disorders of kidney and ureter; Z83.3 Family history of diabetes mellitus; Z82.49 Family history of ischemic heart disease and other diseases of the circulatory system; Z83.49 Family history of other endocrine, nutritional and metabolic diseases
CPT/HCPCS: 70450; 70496; 70498; 70551; 71046; 80048; 80053; 80061; 83036; 84443; 84484; 85025; 85610; 85730; 87635; 93005; 93306; 93312; 93320; 93325; 96360; 96361; 99285

== ENCOUNTER → 2021-07-05 | Outpatient (CLI) | payer MEDICARE, BC ==
[2021-07-05 19:40] LABS: Basophils # (A) 0.02 X 10*3/uL (0.00-0.10); Basophils % (A) 0.3 %; Eosinophils # (A) 0.23 X 10*3/uL (0.04-0.35); Eosinophils % (A) 3.5 %; HCT 46.3 % (39.6-50.0); HGB 14.9 g/dL (13.0-17.0); Lymphocytes % (A) 21.4 %; MCH 29.2 pg (27.0-32.0); MCHC 32.2 g/dL (32.0-37.0); MCV 90.6 fL (80.0-97.0); Mean Platelet Volume 10.3 fL (9.5-12.2); Monocytes # (A) 0.43 X 10*3/uL (0.20-1.00); Monocytes % (A) 6.6 %; Neutrophils # (A) 4.43 X 10*3/uL (1.80-7.70); Neutrophils % (A) 67.9 %; Platelet Count 200 X 10*3/uL (140-440); RBC 5.11 X 10*6/uL (4.40-5.60); RDW 13.2 % (11.5-14.5); WBC 6.53 X 10*3/uL (4.50-10.00)
[2021-07-05 21:56] LABS: Chol/HDL Ratio 4.54 Ratio; HDL Cholesterol 33.9 mg/dL (40.00-60.00); LDL Cholesterol,Calculated 87.7 mg/dL (0.0-131.0); VLDL Calculation 32.4 mg/dL (5.00-40.00)
[2021-07-06 05:15] LABS: BUN/Creat Ratio 26.2 Ratio (12.00-20.00); Globulin 2.7 g/dL (1.6-3.3)
[2021-07-06 05:16] LABS: African American GFR (CKD) 107.2 (60.0-200.0); Albumin 4.7 g/dL (3.8-4.9); Albumin/Globulin Ratio 1.75 (1.60-3.17); Anion Gap 16.2 mmol/L (4.00-12.00); Calcium 9.8 mg/dL (8.7-10.3); Carbon Dioxide 23.6 mmol/L (21.6-31.8); Non-African American GFR(CKD) 92.5 (60.0-200.0); Potassium 4.4 mmol/L (3.5-5.5); Total Bilirubin 0.4 mg/dL (0.30-1.20); Total Protein 7.4 g/dL (6.2-8.2)
[2021-07-06 13:37] LABS: Urine Creatinine 93.9 mg/dL (39.0-259.0)
== END | disposition home or self-care (01) ==
LOC: LABWHC1 11:58
PROVIDERS: ATTEND Internal Medicine Endocrinology, Diabetes & Metabolism
DX: E11.65 Type 2 diabetes mellitus with hyperglycemia (principal); B20 Human immunodeficiency virus [HIV] disease
CPT/HCPCS: 36415; 80053; 80061; 82043; 82570; 83036; 84443; 85025

== ENCOUNTER → 2021-08-08 | Outpatient (CLI) | payer MEDICARE, BC ==
[2021-08-08 23:01] LABS: Basophils # (A) 0.04 X 10*3/uL (0.00-0.10); Basophils % (A) 0.5 %; Eosinophils # (A) 0.21 X 10*3/uL (0.04-0.35); Eosinophils % (A) 2.8 %; HCT 44.9 % (39.6-50.0); HGB 14.7 g/dL (13.0-17.0); Lymphocytes # (A) 2.59 X 10*3/uL (0.90-5.00); MCH 29.3 pg (27.0-32.0); MCHC 32.7 g/dL (32.0-37.0); MCV 89.4 fL (80.0-97.0); Mean Platelet Volume 9.8 fL (9.5-12.2); Monocytes # (A) 0.44 X 10*3/uL (0.20-1.00); Neutrophils # (A) 4.04 X 10*3/uL (1.80-7.70); Neutrophils % (A) 54.8 %; Platelet Count 220 X 10*3/uL (140-440); RBC 5.02 X 10*6/uL (4.40-5.60); RDW 12.9 % (11.5-14.5); WBC 7.39 X 10*3/uL (4.50-10.00)
[2021-08-09 03:00] LABS: African American GFR (CKD) 108.7 (60.0-200.0); Anion Gap 16.6 mmol/L (4.00-12.00); BUN/Creat Ratio 18.33 Ratio (12.00-20.00); Blood Urea Nitrogen 16.5 mg/dL (9.0-27.0); Calcium 9.5 mg/dL (8.7-10.3); Carbon Dioxide 22.4 mmol/L (21.6-31.8); Non-African American GFR(CKD) 93.8 (60.0-200.0)
[2021-08-09 14:03] LABS: T4/T8 Ratio (CD4:CD8) 0.9 (1.0-3.7)
[2021-08-11 02:48] LABS: HIV-1 RNA Not detected (Not detected); HIV-1 RNA, Quant <40 Copies/mL (<40)
== END | disposition home or self-care (01) ==
LOC: LABWHC1 15:01
PROVIDERS: ATTEND Internal Medicine Infectious Disease
DX: B20 Human immunodeficiency virus [HIV] disease (principal)
CPT/HCPCS: 36415; 80048; 85025; 86360; 87536

== ENCOUNTER → 2021-11-01 | Outpatient (CLI) | payer MEDICARE, BC ==
[2021-11-01 14:56] LABS: ALT 36 U/L (10-49); AST 29 U/L (14-35); African American GFR (CKD) 108.7 (60.0-200.0); Albumin 4.6 g/dL (3.8-4.9); Alkaline Phosphatase 59 U/L (41-126); BUN/Creat Ratio 22.89 Ratio (12.00-20.00); Blood Urea Nitrogen 20.6 mg/dL (9.0-27.0); Calcium 9.7 mg/dL (8.7-10.3); Carbon Dioxide 22.9 mmol/L (20.0-27.5); Chloride 102 mmol/L (96-109); Chol/HDL Ratio 5.36 Ratio; Globulin 2.7 g/dL (1.6-3.3); Glucose 203 mg/dL (70-110); LDL Cholesterol,Calculated 102.3 mg/dL (0.0-131.0); Non-African American GFR(CKD) 93.8 (60.0-200.0); Potassium 4.6 mmol/L (3.5-5.5); Sodium 139 mmol/L (135-145); Total Protein 7.3 g/dL (6.2-8.2)
[2021-11-01 18:12] LABS: Urine Creatinine 82.1 mg/dL (39.0-259.0)
[2021-11-02 06:34] LABS: C-Peptide 3.19 ng/mL (0.81-3.85)
== END | disposition home or self-care (01) ==
LOC: LABWHC1 08:13
PROVIDERS: ATTEND Internal Medicine Endocrinology, Diabetes & Metabolism
DX: E11.65 Type 2 diabetes mellitus with hyperglycemia (principal)
CPT/HCPCS: 36415; 80053; 80061; 82043; 82570; 83036; 84443; 84681

== ENCOUNTER → 2022-01-24 | Outpatient (CLI) | payer MEDICARE, BC ==
[2022-01-24 14:37] LABS: Basophils # (A) 0.02 X 10*3/uL (0.00-0.10); Basophils % (A) 0.4 %; Eosinophils # (A) 0.16 X 10*3/uL (0.04-0.35); Eosinophils % (A) 2.9 %; HGB 14.9 g/dL (13.0-17.0); Immature Grans, Automated 0.4 %; Lymphocytes # (A) 1.66 X 10*3/uL (0.90-5.00); Lymphocytes % (A) 29.8 %; MCH 29.5 pg (27.0-32.0); MCHC 33.1 g/dL (32.0-37.0); MCV 89.1 fL (80.0-97.0); Mean Platelet Volume 10.7 fL (9.5-12.2); Monocytes # (A) 0.37 X 10*3/uL (0.20-1.00); Monocytes % (A) 6.6 %; NRBC Per 100 WBC 0 /100 WBCS (0.0-0.0); Neutrophils # (A) 3.34 X 10*3/uL (1.80-7.70); Neutrophils % (A) 59.9 %; Platelet Count 191 X 10*3/uL (140-440); RBC 5.05 X 10*6/uL (4.40-5.60); RDW 13.6 % (11.5-14.5); WBC 5.57 X 10*3/uL (4.50-10.00)
[2022-01-24 18:42] LABS: African American GFR (CKD) 85.3 (60.0-200.0); Anion Gap 13.1 mmol/L (10.00-18.00); Calcium 9.5 mg/dL (8.7-10.3); Carbon Dioxide 23.9 mmol/L (20.0-27.5); Non-African American GFR(CKD) 73.6 (60.0-200.0); Potassium 4.4 mmol/L (3.5-5.5)
[2022-01-25 12:44] LABS: T4/T8 Ratio (CD4:CD8) 0.9 (1.0-3.7)
[2022-01-25 15:09] LABS: HIV-1 RNA Not detected (Not detected); HIV-1 RNA, Quant <40 Copies/mL (<40); LOG HIV Copies/mL <1.60 (<1.60)
== END | disposition home or self-care (01) ==
LOC: LABWHC1 09:39
PROVIDERS: ATTEND Internal Medicine Infectious Disease
DX: B20 Human immunodeficiency virus [HIV] disease (principal)
CPT/HCPCS: 36415; 80048; 85025; 86360; 87536

== ENCOUNTER → 2022-03-07 | Outpatient (CLI) | payer MEDICARE, BC ==
[2022-03-07 16:09] LABS: ALT 40 U/L (10-49); AST 24 U/L (14-35); African American GFR (CKD) 111.4 (60.0-200.0); Albumin 4.5 g/dL (3.8-4.9); Albumin/Globulin Ratio 2.03 (1.60-3.17); Alkaline Phosphatase 57 U/L (41-126); BUN/Creat Ratio 20.14 Ratio (12.00-20.00); Blood Urea Nitrogen 17.1 mg/dL (9.0-27.0); Calcium 9.4 mg/dL (8.7-10.3); Carbon Dioxide 23.1 mmol/L (20.0-27.5); Chloride 104 mmol/L (96-109); Chol/HDL Ratio 4.99 Ratio; Globulin 2.2 g/dL (1.6-3.3); Glucose 150 mg/dL (70-110); LDL Cholesterol,Calculated 104.5 mg/dL (0.0-131.0); Non-African American GFR(CKD) 96.1 (60.0-200.0); Potassium 4.4 mmol/L (3.5-5.5); Sodium 141 mmol/L (135-145); Total Protein 6.8 g/dL (6.2-8.2)
== END | disposition home or self-care (01) ==
LOC: LABWHC1 08:16
PROVIDERS: ATTEND Internal Medicine Endocrinology, Diabetes & Metabolism
DX: E11.65 Type 2 diabetes mellitus with hyperglycemia (principal)
CPT/HCPCS: 36415; 80053; 80061; 82043; 82570; 83036; 84443

== ENCOUNTER → 2022-08-03 | Outpatient (CLI) | payer MEDICARE, BC ==
[2022-08-03 14:18] LABS: Basophils # (A) 0.02 X 10*3/uL (0.00-0.10); Basophils % (A) 0.3 %; Eosinophils # (A) 0.17 X 10*3/uL (0.04-0.35); Eosinophils % (A) 2.6 %; HGB 13.9 g/dL (13.0-17.0); Immature Grans, Automated 0.6 %; Lymphocytes # (A) 2.01 X 10*3/uL (0.90-5.00); Lymphocytes % (A) 31.2 %; MCH 30.6 pg (27.0-32.0); MCHC 33.9 g/dL (32.0-37.0); MCV 90.3 fL (80.0-97.0); Mean Platelet Volume 10.6 fL (9.5-12.2); Monocytes % (A) 7.8 %; NRBC Per 100 WBC 0 /100 WBCS (0.0-0.0); Neutrophils # (A) 3.71 X 10*3/uL (1.80-7.70); Neutrophils % (A) 57.5 %; Platelet Count 187 X 10*3/uL (140-440); RBC 4.54 X 10*6/uL (4.40-5.60); RDW 13.3 % (11.5-14.5); WBC 6.45 X 10*3/uL (4.50-10.00)
[2022-08-03 14:51] LABS: Albumin 4.6 g/dL (3.8-4.9); Anion Gap 12.6 mmol/L (10.00-18.00); BUN/Creat Ratio 16.44 Ratio (12.00-20.00); Blood Urea Nitrogen 14.8 mg/dL (9.0-27.0); Calcium 9.7 mg/dL (8.7-10.3); Carbon Dioxide 25.4 mmol/L (20.0-27.5); Globulin 2.3 g/dL (1.6-3.3); Non-African American GFR(CKD) 93.2 (60.0-200.0); Potassium 4.5 mmol/L (3.5-5.5); Total Bilirubin 0.5 mg/dL (0.30-1.20); Total Protein 6.9 g/dL (6.2-8.2)
[2022-08-04 14:27] LABS: T4/T8 Ratio (CD4:CD8) 0.8 (1.0-3.7)
== END | disposition home or self-care (01) ==
LOC: LABWHC1 10:13
PROVIDERS: ATTEND Internal Medicine Infectious Disease
DX: B20 Human immunodeficiency virus [HIV] disease (principal)
CPT/HCPCS: 36415; 80053; 85025; 86360; 87536

== ENCOUNTER → 2022-10-03 | Outpatient (CLI) | payer MEDICARE, BC ==
[2022-10-03 16:32] LABS: ALT 70 U/L (10-49); AST 46 U/L (14-35); Albumin 4.8 g/dL (3.8-4.9); Albumin/Globulin Ratio 1.92 (1.60-3.17); Alkaline Phosphatase 47 U/L (41-126); BUN/Creat Ratio 15.33 Ratio (12.00-20.00); Blood Urea Nitrogen 13.8 mg/dL (9.0-27.0); Calcium 10.1 mg/dL (8.7-10.3); Carbon Dioxide 27.5 mmol/L (20.0-27.5); Chloride 101 mmol/L (96-109); Chol/HDL Ratio 4.47 Ratio; Globulin 2.5 g/dL (1.6-3.3); Glucose 150 mg/dL (70-110); LDL Cholesterol,Calculated 101.6 mg/dL (0.0-131.0); Non-African American GFR(CKD) 93.2 (60.0-200.0); Potassium 4.1 mmol/L (3.5-5.5); Sodium 141 mmol/L (135-145); Total Protein 7.3 g/dL (6.2-8.2)
== END | disposition home or self-care (01) ==
LOC: LABWHC1 07:52
PROVIDERS: ATTEND Internal Medicine Endocrinology, Diabetes & Metabolism
DX: E11.65 Type 2 diabetes mellitus with hyperglycemia (principal)
CPT/HCPCS: 36415; 80053; 80061; 82043; 82570; 83036; 84443

== ENCOUNTER → 2023-01-09 | Outpatient (CLI) | payer MEDICARE, BC ==
[2023-01-09 15:08] LABS: Basophils # (A) 0.03 X 10*3/uL (0.00-0.10); Basophils % (A) 0.6 %; Eosinophils # (A) 0.16 X 10*3/uL (0.04-0.35); Eosinophils % (A) 3.2 %; HCT 43.4 % (39.6-50.0); HGB 14.1 g/dL (13.0-17.0); Immature Grans, Automated 0.2 %; Lymphocytes # (A) 1.48 X 10*3/uL (0.90-5.00); Lymphocytes % (A) 29.7 %; MCH 29.7 pg (27.0-32.0); MCHC 32.5 g/dL (32.0-37.0); MCV 91.4 fL (80.0-97.0); Mean Platelet Volume 10.9 fL (9.5-12.2); Monocytes # (A) 0.44 X 10*3/uL (0.20-1.00); Monocytes % (A) 8.8 %; NRBC Per 100 WBC 0 /100 WBCS (0.0-0.0); Neutrophils # (A) 2.86 X 10*3/uL (1.80-7.70); Neutrophils % (A) 57.5 %; Platelet Count 178 X 10*3/uL (140-440); RBC 4.75 X 10*6/uL (4.40-5.60); RDW 12.3 % (11.5-14.5); WBC 4.98 X 10*3/uL (4.50-10.00)
[2023-01-09 15:41] LABS: ALT 80 U/L (10-49); AST 49 U/L (14-35); African American GFR (CKD) 95.5 (60.0-200.0); Albumin 4.6 g/dL (3.8-4.9); Albumin/Globulin Ratio 1.86 (1.60-3.17); Alkaline Phosphatase 45 U/L (41-126); BUN/Creat Ratio 17.27 Ratio (12.00-20.00); Blood Urea Nitrogen 17.2 mg/dL (9.0-27.0); Calcium 9.7 mg/dL (8.7-10.3); Carbon Dioxide 25.5 mmol/L (20.0-27.5); Chloride 103 mmol/L (96-109); Chol/HDL Ratio 4.43 Ratio; Globulin 2.5 g/dL (1.6-3.3); Glucose 208 mg/dL (70-110); Non-African American GFR(CKD) 82.4 (60.0-200.0); Potassium 4.7 mmol/L (3.5-5.5); Sodium 141 mmol/L (135-145); Total Protein 7.1 g/dL (6.2-8.2)
[2023-01-10 11:30] LABS: T4/T8 Ratio (CD4:CD8) 0.9 (1.0-3.7)
[2023-01-10 13:15] LABS: HIV-1 RNA Not detected (Not detected); HIV-1 RNA, Quant <20 Copies/mL (<20); LOG HIV Copies/mL <1.30 (<1.30)
== END | disposition home or self-care (01) ==
LOC: LABWHC1 08:23
PROVIDERS: ATTEND Internal Medicine Endocrinology, Diabetes & Metabolism
DX: E11.65 Type 2 diabetes mellitus with hyperglycemia (principal); B20 Human immunodeficiency virus [HIV] disease
CPT/HCPCS: 36415; 80053; 80061; 82043; 82570; 83036; 84443; 85025; 86360; 87536

== ENCOUNTER → 2023-04-18 | Outpatient (CLI) | payer MEDICARE, BC ==
--- NOTE | 2023-04-18 11:04 | CTL ---
EXAMINATION TYPE: CT Low Dose Lung DATE OF EXAM: 04/18/2023 8:38 AM CLINICAL INDICATION:Male, 57 years old with history of Z87.891 personal hx tobacco use; Personal hist ory of tobacco use , history of tobacco use. COMPARISON: None. TECHNIQUE: Multiple axial non-contrast scans were obtained from approximately the lung apices through the upper abdomen. Coronal and sagittal reformatted images were obtained. Low dose technique was uti lized. CT DLP: 94.2 mGycm, Automated exposure control for dose reduction was used. CT Contrast: Contrast used: None Oral contrast used: None FINDINGS: ======== Lack of intravenous contrast and low dose technique limits the evaluation of the vascular and soft ti ssue structures. LUNGS: No evidence of pulmonary fibrosis. No evidence of focal consolidation, pneumothorax or pleural effusion. 77 Nodules: RUL: None. RML: None. RLL: None. LIANE: None. LLL: None. AIRWAY: Patent and unremarkable. HEART: Size within normal limits. Coronary artery calcifications are present. MEDIASTINUM: No gross evidence of adenopathy. VASCULATURE: No aortic aneurysm. MUSCULOSKELETAL: Mild disc degeneration changes are present throughout the thoracolumbar spine. SOFT TISSUES/LYMPH NODES: Unremarkable. LOWER NECK: No significant findings. UPPER ABDOMEN: Diffuse low-attenuation to the liver parenchyma. IMPRESSION: 1. No clinically significant pulmonary nodules. 2. Moderate coronary artery calcifications. 3. Hepatic steatosis. CT LUNG RAD AND CT CHEST RECOMMENDATION: Lung-Rad 1 Negative: Continue annual screening with LDCT in 12 months. S Modifier (other clinically significant findings): Moderate coronary artery calcifications. Recommend smoking cessation (if current smoker), or continuation of smoking cessation (if prior smoke r). Annual screening for lung cancer with low-dose computed tomography is recommended in adults ages 55 to 77 years who have a 30 pack-year smoking history and currently smoke or have quit within the pa st 15 years. Screening should be discontinued once a person has not smoked for 15 years or develops a health problem that substantially limits life expectancy or the ability or willingness to have curat pennie lung surgery. Lung rads 2021 [email or web address]
== END | disposition home or self-care (01) ==
LOC: RADCTMAIN 08:17
PROVIDERS: ATTEND Internal Medicine
DX: Z12.2 Encounter for screening for malignant neoplasm of respiratory organs (principal); I25.10 Atherosclerotic heart disease of native coronary artery without angina pectoris; K76.0 Fatty (change of) liver, not elsewhere classified; Z87.891 Personal history of nicotine dependence
CPT/HCPCS: 71271

== ENCOUNTER → 2023-04-24 | Outpatient (CLI) | payer MEDICARE, BC ==
--- NOTE | 2023-04-24 10:01 | BD ---
EXAMINATION TYPE: Axial Bone Density DATE OF EXAM: 04/24/2023 CLINICAL HISTORY: 57 years old Male. ICD-10 CODE: B20 HIV DISEASE Height: 69in Weight: 150lb FRAX RISK QUESTIONS: History of Fracture in Adulthood: yes Secondary Osteoporosis: RISK FACTORS HISTORY OF: Family History of Osteoporosis: unknown Active: yes Take estrogen and/or progesterone medications: testosterone gel How long: about 6 months Frequent falls: occasional Poor Health: fair MEDICATIONS: Additional Medications: diabetic meds, cholesterol med, bp med, reflux med, cardiac meds, calcium, vi tamin d Additional History: HIV, stroke, Type II diabetic, colon cancer EXAM MEASUREMENTS: Bone mineral densitometry was performed using the [employer] System. Bone mineral density as measured about the Lumbar spine is: ----- L1-L4(G/cm2): 1.185 T Score Values are as follows: ----- L1: -0.4 ----- L2: -1.0 ----- L3: 0.5 ----- L4: 0.8 ----- L1-L4: 0.0 Z Score Values are as follows: ----- L1: 0.0 ----- L2: -0.6 ----- L3: 0.8 ----- L4: 1.1 ----- L1-L4: 0.4 First dexa at [facility] Bone mineral density about the R hip (g/cm2): 0.724 Bone mineral density about the L hip (g/cm2): 0.723 T Score values are as follows: -----R Neck: -2.7 -----L Neck: -2.6 -----R Total: -2.2 -----L Total: -2.3 Z Score values are as follows: -----R Neck: -2.0 -----L Neck: -1.9 -----R Total: -1.9 -----L Total: -2.0 First dexa at [facility] FRAX%s: The graph provided illustrates a 17.5% chance for a major osteoporotic fx and a 6.2% chance f or the hips probability for fx in 10 years time. IMPRESSION: Osteoporosis (T Score less than -2.5). There is increased fracture risk and therapy is usually indicated based on age. Re-Screen 1-2 years. NOTE: T-SCORE=SD OF THE YOUNG ADULT MEAN.
== END | disposition home or self-care (01) ==
LOC: RADBDWWP 04-18 08:32
PROVIDERS: ATTEND Internal Medicine
DX: B20 Human immunodeficiency virus [HIV] disease (principal); M81.0 Age-related osteoporosis without current pathological fracture; M85.89 Other specified disorders of bone density and structure, multiple sites
CPT/HCPCS: 77080

== ENCOUNTER → 2023-05-23 | Outpatient (CLI) | payer MEDICARE, BC ==
--- NOTE | 2023-05-23 11:51 | US ---
EXAMINATION TYPE: US carotid duplex BILAT DATE OF EXAM: 05/23/2023 COMPARISON: NONE CLINICAL INDICATION: Male, 57 years old with history of CVA; TECHNIQUE: Carotid duplex ultrasound examination. Indirect Doppler criteria was utilized. FINDINGS: EXAM MEASUREMENTS: RIGHT: Peak Systolic Velocity (PSV) cm/sec ----- Right CCA: 85.8 ----- Right ICA: 71.0 ----- Right ECA: 74.6 ICA/CCA ratio: 0.8 RIGHT: End Diastole cm/sec ----- Right CCA: 27.0 ----- Right ICA: 32.2 ----- Right ECA: 15.0 LEFT: Peak Systolic Velocity (PSV) cm/sec ----- Left CCA: 71.4 ----- Left ICA: 65.8 ----- Left ECA: 92.0 ICA/CCA ratio: 0.9 LEFT: End Diastole cm/sec ----- Left CCA: 22.8 ----- Left ICA: 26.8 ----- Left ECA: 20.1 VERTEBRALS (direction of flow): Right Vertebral: Antegrade Left Vertebral: Antegrade Rhythm: Normal No significant stenosis. Mild atherosclerotic plaque in the bilateral carotid bulbs. IMPRESSION: No ultrasound evidence for hemodynamically significant stenosis of the visualized bilateral carotid a rterial systems. Criteria for Assigning % of Stenosis / Diameter reduction (Estimation based on the indirect measurements of the internal carotid artery velocities (ICA PSV). 1. Normal (no stenosis)=ICA PSV < 125 cm/s: ratio < 2.0: ICA EDV<40 cm/s. 2. Less than 50% stenosis=ICA PSV < 125 cm/s: ratio < 2.0: ICA EDV<40 cm/s. 3. 50 to 69% stenosis=ICA PSV of 125 to 230 cm/s: ration 2.0 ? 4.0: ICA EDV 40-100 cm/s. 4. Greater than 70% stenosis to near occlusion= ICA PSV > 230 cm/s: ratio > 4.0: ICA EDV > 100 cm/s. 5. Near occlusion= ICA PSV velocities may be low or undetectable: variable ratio and ICA EDV. 6. Total occlusion=unable to detect flow.
== END | disposition home or self-care (01) ==
LOC: RADUSWWP 11:12
PROVIDERS: ATTEND Internal Medicine
DX: I63.9 Cerebral infarction, unspecified (principal); Z86.73 Personal history of transient ischemic attack (TIA), and cerebral infarction without residual deficits
CPT/HCPCS: 93880

== ENCOUNTER 2023-07-23 10:33 | Day surgery (SDC) | payer MEDICARE, BC ==
[2023-07-23 11:29] VITALS: RESP 16; TEMP 98.6
[2023-07-23] MEDS ORDERED: LACTATED RINGERS 1,000 ML IV ONE (11:30)
[2023-07-23 11:38] LABS: Glucose,Whole Blood 137 mg/dL (70-110)
[2023-07-23] MEDS ORDERED: LACTATED RINGERS 1,000 ML IV SCH (11:44)
[2023-07-23] MEDS ORDERED: LIDOCAINE 1% (10MG/ML) FOR IV START INTRADERMA PRN (11:44)
[2023-07-23] MEDS ORDERED: LIDOCAINE 1% INJ 10MG/ML (20 ML MDV) ONE (12:43)
[2023-07-23] MEDS ORDERED: PROPOFOL 10 MG/ML 20 ML VIAL IV ONE (12:43)
--- NOTE | 2023-07-23 13:05 | P.PCN ---
Date of Procedure: 07/23/23 Procedure(s) Performed: Brief history: Patient is a pleasant 4-year-old white male with history of HIV, scheduled for an elective upper endoscopy as well as colonoscopy as a part of evaluation of pulse and history of GERD and screening for colon cancer Procedure performed: Esophagogastroduodenoscopy with biopsy Colonoscopy Preoperative diagnosis: History of GERD Screening for colon cancer Anesthesia: MAC Procedure: After informed consent was obtained from the patient was brought into the endo scopy unit and IV sedation was administered by anesthesia under continuous monitoring. Initially upper endoscopy was done. The Olympus GF 160 video endoscope was inserted inserted into the mouth and esophagus intubated without any difficulty and was gradually advanced into the stomach and duodenum and carefully examined. The bulb and second part of the duodenum had mild scalloping of the mucosa and biopsies were done from this area. The scope was then withdrawn into the stomach adequately insufflated with air and upon careful examination the antrum had gastritis and biopsies were done from this area. Mucosa of the body, cardia and fundus appeared normal. The scope was then withdrawn into the esophagus. The GE junction was located at 40 cm to the incisors. It appeared regular with no erythema erosions or ulcerations. Rest of the esophagus appeared normal. Patient tolerated the procedure well. At this time the patient continued to remain sedation. Initial digital rectal examination was normal. Olympus CF 160 video colonoscope was then inserted into the rectum and gradually advanced to the cecum without any difficulty. Careful examination was performed as the scope was gradually being withdrawn. The prep was excellent. The cecum, ascending colon, transverse colon, descending colon, sigmoid colon and rectum appeared normal. Retroflexion was performed in the rectum and no lesions were noted. Patient tolerated the procedure well. Impression: 1. Upper endoscopy revealed mild antral gastritis and duodenitis 2. Colonoscopy was within normal limits with no evidence of colorectal neoplasia Recommendations: Findings of this examination were discussed with the patient as well as his family. He was advised to follow with the biopsy results. Continue with cu rrent medications and follow antireflux measures. Recommend repeat screening colonoscopy in 10 years.
[2023-07-23 13:45] VITALS: BP 150/89; PULSE 77
== END 2023-07-23 13:52 | disposition home or self-care (01) ==
LOC: ORWHC2ENDO 10:33
PROVIDERS: ATTEND Internal Medicine Gastroenterology
DX: Z12.11 Encounter for screening for malignant neoplasm of colon (principal); D72.820 Lymphocytosis (symptomatic); K29.70 Gastritis, unspecified, without bleeding; K29.80 Duodenitis without bleeding; K31.9 Disease of stomach and duodenum, unspecified; K21.9 Gastro-esophageal reflux disease without esophagitis; E11.9 Type 2 diabetes mellitus without complications; Z86.73 Personal history of transient ischemic attack (TIA), and cerebral infarction without residual deficits; Z79.02 Long term (current) use of antithrombotics/antiplatelets; Z79.84 Long term (current) use of oral hypoglycemic drugs; Z91.013 Allergy to seafood; Z79.899 Other long term (current) drug therapy
CPT/HCPCS: 88305; 45378; 43239; J2001; J2704

== ENCOUNTER → 2023-07-26 | Outpatient (CLI) | payer MEDICARE, BC ==
[2023-07-26 15:58] LABS: ALT 58 U/L (10-49); AST 46 U/L (14-35); Albumin 4.5 d/dL (3.8-4.9); Alkaline Phosphatase 49 U/L (41-126); BUN/Creat Ratio 14.11 Ratio (12.00-20.00); Blood Urea Nitrogen 12.7 mg/dL (9.0-27.0); Calcium 9.6 mg/dL (8.7-10.3); Carbon Dioxide 23.5 mmol/L (21.6-31.8); Chloride 101 mmol/L (96-109); Globulin 2.5 d/dL (1.6-3.3); Glucose 223 mg/dL (70-110); Potassium 4.2 mmol/L (3.5-5.5); Sodium 139 mmol/L (135-145); Total Bilirubin 0.5 mg/dL (0.3-1.2)
[2023-07-26 16:16] LABS: Basophils # (A) 0.02 X 10*3/uL (0.00-0.10); Basophils % (A) 0.3 %; Eosinophils # (A) 0.13 X 10*3/uL (0.04-0.35); Eosinophils % (A) 2.2 %; HCT 42.2 % (39.6-50.0); HGB 14.3 d/dL (13.0-17.0); Lymphocytes # (A) 2.13 X 10*3/uL (0.90-5.00); Lymphocytes % (A) 35.3 %; MCH 29.7 pg (27.0-32.0); MCHC 33.9 d/dL (32.0-37.0); MCV 87.6 FL (80.0-97.0); Mean Platelet Volume 10.5 FL (9.5-12.2); Monocytes # (A) 0.38 X 10*3/uL (0.20-1.00); Monocytes % (A) 6.3 %; NRBC Per 100 WBC 0 X 10*3/uL (0.00-0.01); Neutrophils # (A) 3.35 X 10*3/uL (1.80-7.70); Neutrophils % (A) 55.6 %; Platelet Count 157 X 10*3/uL (140-440); RBC 4.82 X 10*6/uL (4.40-5.60); RDW 12.8 % (11.5-14.5); WBC 6.03 X 10*3/uL (4.50-10.00)
[2023-07-27 12:36] LABS: T4/T8 Ratio (CD4:CD8) 0.8 (1.0-3.7)
== END | disposition home or self-care (01) ==
LOC: LABWHC1 11:32
PROVIDERS: ATTEND Internal Medicine Infectious Disease
DX: B20 Human immunodeficiency virus [HIV] disease (principal)
CPT/HCPCS: 36415; 80053; 85025; 86360; 87536

== ENCOUNTER → 2023-08-29 | Outpatient (CLI) | payer MEDICARE, BC ==
[2023-08-29 11:51] VITALS: BP 180/99; PULSE 88; RESP 15; TEMP 98.2
--- NOTE | 2023-08-29 15:32 | P.PAINPG ---
PQRS Measure Charge Sheet Comment: HISTORY OF PRESENT ILLNESS: A 58 yr old male as a referral from Dr Weaver presents today w severe and chronic neck pain x 10 yrs secondary to DDD, spondylosis and facet arthropathy without myelopathy for evaluation. Pt states pain level is provoked at 6 /10 in intensity, constant, localized in the lower cervical spine, predominantly axial, sharp in character w occasional shooting pain towards of the head and to the BL shoulders. Pain is provoked by laying supine. Pain is alleviated by PT 6 weeks in August 2022, physician guided exercises daily since September 13, heat, OTC medications, repositioning and rest. Cervical disability pain score at 28. PMH: OA, Rectal CA, DM II, Hyperlipidemia, HIV/ AIDS PSH: Tonsillectomy SH: Negative x3 FH: Fa- DM, CAD, IA. Mo- CKD. All: See list Meds: See list REVIEW OF ORGAN SYSTEMS: CONSTITUTIONAL: No fevers or chills. No recent weight loss. NEUROLOGICAL: + numbness and tingling along the distal extremities. No seizure disorders or headaches. MUSCULOSKELETAL: + pain PSYCHIATRIC: Denies current depression or suicidal thoughts. Physical Examinations : Constitutional : Cooperative , not in acute distress . Neurologic : Cranial nerve II to XII intact. No focal neurological deficits. Psychiatric : alert & oriented x 3. Matching mood & appropriate affect. Judgment & insight intact. Musculoskeletal : Cervical Spine Motor strength in the deltoid and biceps: Normal right side. Normal Left side Motor strength biceps and the wrist extensors: Normal right side . Normal left side Motor strength in the triceps muscle: Normal right side. Normal left side Deep tendon reflexes: Normal at the biceps. Normal at Brachioradialis. Normal at triceps Vertebral body tenderness to deep palpation over C7 Cervical facet loading test: positive bilaterally Spurling test: positive bilaterally over C6-C7 Neck distraction test: positive bilaterally Channing sign: positive bilaterally Lumbar spine Motor strength lower extremities ,thigh and legs 5/5 Right side , 5/5 Left side Deep tendon reflexes : Normal Knee Jerk. Normal Ankle Jerk Vertebral body tenderness over Short Test positive Lumbar facet Loading Test: positive Right / positive Left Range of motion of the lumbar spine Flexion 30 degrees, extension 10 degrees Straight Leg Raise test: Left/ Right positive at degree Ramana test: positive right / positive left. Severe tenderness over the Sacroiliac joint on the Right / Left sides Gaenslen test: positive bilaterally Seated flexion test: positive bilaterally. Sacral spine : Severe tenderness over the Sacroiliac joint: right side / left side Range of motion: Flexion of the lumbar spine <60 degrees Range of motion: Extension of the lumbar spine <20 degrees Gaenslen's Test positive Ramana test: positive right side / left side Thigh Thrust Test Sacral Thrust Test Imaging: MRI noncontrast of the cervical spine from 01/29/23 reviewed Assessment/ Plan : Cervical DDD Recommendation of BEREKET C6-C7 #1. May need a series of injections for optimal pain relief. Risks, benefits of procedure discussed and patient verbalized understanding. Admits to anti- coagulant use or medical history of diabetes. Protocol for discontinuation/ continuation of medications ariella procedure discussed. Minimal anesthesia provided, if clinically indicated, consisting of Versed and Fentanyl. All questions answered. I have spent greater than 30 minutes on patient care today. Dr Severino was available by phone for the evaluation of this patient. The time was used to review the medical records including relevant urine studies and Prescription history (MAPs), review of the available imaging, evaluation and examination of the patient, coordination of care with the medical staff and if applicable referring physicians, as well as creation of the medical record Home Medications: Ambulatory Orders Amitriptyline HCl [Elavil] 10 mg PO HS 01/07/21 Bictegrav/Emtricit/Tenofov Ala [Biktarvy 50-200-25 mg Tablet] 1 tab PO HS 01/07/21 Canagliflozin [Invokana] 300 mg PO DAILY 01/07/21 Famciclovir [Famvir] 500 mg PO BID 01/07/21 Fosamprenavir Calcium [Lexiva] 1,400 mg PO BID 01/07/21 Gabapentin 800 mg PO TID 01/07/21 Pioglitazone [Actos] 30 mg PO DAILY 01/07/21 Terazosin [Hytrin] 2 mg PO DAILY 01/07/21 Testosterone [Androgel 1.62% Gel Pump] 2 pump TOPICAL DAILY 01/07/21 glipiZIDE [Glucotrol] 7.5 mg PO BID 01/07/21 lisinopriL [Zestril] 10 mg PO HS 01/07/21 metFORMIN HCL [Glucophage] 500 mg PO AC-BID 01/07/21 Atorvastatin [Lipitor] 40 mg PO HS #30 tab 01/10/21 Clopidogrel [Plavix] 75 mg PO DAILY #30 tab 01/10/21 Controlled Substance Measures - Controlled Substance Measures Is patient prescribed a controlled substance at discharge?: No
== END ==
LOC: PNWHC3 08:35
PROVIDERS: ATTEND Specialist
DX: M54.2 Cervicalgia (principal); M54.12 Radiculopathy, cervical region; M47.812 Spondylosis without myelopathy or radiculopathy, cervical region; M43.12 Spondylolisthesis, cervical region; Z88.3 Allergy status to other anti-infective agents
CPT/HCPCS: 99211

== ENCOUNTER → 2023-09-13 | Outpatient (CLI) | payer MEDICARE, BC ==
[2023-09-13 11:38] LABS: ALT 54 U/L (10-49); AST 38 U/L (14-35); Albumin 4.7 g/dL (3.8-4.9); Albumin/Globulin Ratio 1.81 Ratio (1.60-3.17); Alkaline Phosphatase 53 U/L (41-126); BUN/Creat Ratio 20.33 Ratio (12.00-20.00); Blood Urea Nitrogen 18.3 mg/dL (9.0-27.0); Calcium 9.7 mg/dL (8.7-10.3); Carbon Dioxide 23.8 mmol/L (21.6-31.8); Chloride 100 mmol/L (96-109); Chol/HDL Ratio 6.36 Ratio; Globulin 2.6 g/dL (1.6-3.3); Glucose 179 mg/dL (70-110); Potassium 4.4 mmol/L (3.5-5.5); Sodium 139 mmol/L (135-145); Total Bilirubin 0.4 mg/dL (0.3-1.2); Total Protein 7.3 g/dL (6.2-8.2)
== END | disposition home or self-care (01) ==
LOC: LABWHC1 07:37
PROVIDERS: ATTEND Internal Medicine Endocrinology, Diabetes & Metabolism
DX: Z12.5 Encounter for screening for malignant neoplasm of prostate (principal); E11.65 Type 2 diabetes mellitus with hyperglycemia
CPT/HCPCS: 80061; 80053; 84443; 83721; 82043; 82570; 83036; 36415; G0103

== ENCOUNTER → 2023-10-15 | Day surgery (SDC) | payer MEDICARE, BC ==
[2023-10-10 09:42] VITALS: BMI 21.7
[~2023-10-15] MED LIST: DEXAMETHASONE SOD PHOSPHATE 10 MG/ML 1 ML VIAL ONE; INSULIN ASPART (NovoLOG) 100 UNIT/ML VIAL SQ ONE; LACTATED RINGERS 1,000 ML IV SCH
[2023-10-15 08:34] LABS: Glucose,Whole Blood 207 mg/dL (70-110)
[2023-10-15 08:42] VITALS: TEMP 97.4
--- NOTE | 2023-10-15 09:24 | P.PCN ---
Date of Procedure: 10/15/23 Procedure(s) Performed: . PROCEDURE 1. Cervical epidural steroid injection under fluoroscopic guidance, C6-7 (fluoroscopy images available in the radiology department ) 2. Cervical epidurogram. PREOPERATIVE DIAGNOSIS: 1- Cervical Degenerative Disc Diseases 2- Cervical radiculopathy. POSTOPERATIVE DIAGNOSIS: : 1- Cervical Degenerative Disc Diseases , 2- Cervical radiculopathy. ANESTHESIA: Local anesthesia with lidocaine 1% 3 ml only EBL 0 PROCEDURE INDICATION: The patient with neck pain and radiculitis unresponsive to conservative treatment consents for procedure. PROCEDURE DESCRIPTION / TECHNIQUE: The patient was seen and identified in the preoperative area. Risks, benefits, complications, including but not limited to infections ,bleeding , allergic reactions to the medications ,and not complete pain releife, and alternatives were discussed with the patient, the patient agreed to proceed with the procedure and signed the consent. Patient was taken to the OR and time out was completed. The patient was placed in the prone position on the procedure table. A pillow was placed under the patients chest to increase the cervical interlaminar space. The cervical area was prepped and draped in the usual sterile fashion. Vital signs were closely monitored during the procedure. Using anterior-posterior fluoroscopy, the C6-7interlaminar space was identified and the skin over this site was marked and then infiltrated with 1% lidocaine subcutaneously. Subsequently, a 20-gauge 3-1/2-inch Tuohy epidural needle was inserted and advanced toward the epidural space by means of the ``hanging-drop technique and guided by AP and lateral fluoroscopy. The correct needle position in the epidural space was verified with the injection of 2 mL of the water soluble contrast dye Isovue-200 and observing an excellent epidurogram with the epidural spread of the dye, after negative aspiration for blood and CSF and in the absence of paresthesias. then, mixture containing 15 mg Dexamethasone and 2 ml of preservative-free normal saline injected and a washout of epidurogram was seen. Needle was withdrawn intact, skin was cleansed, and bandages were applied. Complications= none. Disposition= patient was placed in supine position and transferred to the recovery room area in stable condition and there was no evidence of upper or lower extremity motor or sensory deficit after the procedure patient was discharged from recovery room after discharge criteria met and home discharge instructions was given by the staff and patient will follow with the pain clinic in 2-4 weeks
--- NOTE | 2023-10-15 09:35 | FL ---
Fluoroscopy INDICATION: Pain FINDINGS: Fluoroscopy time: 18 seconds. Total dose area product (DAP) in uGy*m?, mGy*cm? (or similar): 0.05760 Images obtained: 4. IMPRESSION: 1. Documentation of fluoroscopy.
[2023-10-15 09:45] LABS: Glucose,Whole Blood 185 mg/dL (70-110)
[2023-10-15 09:58] VITALS: BP 172/98; PULSE 79; RESP 18
== END ==
LOC: ORPAIN 08:09
PROVIDERS: ATTEND Specialist
DX: M50.123 Cervical disc disorder at C6-C7 level with radiculopathy (principal); E11.9 Type 2 diabetes mellitus without complications; Z79.4 Long term (current) use of insulin; Z79.84 Long term (current) use of oral hypoglycemic drugs; Z79.82 Long term (current) use of aspirin; Z79.02 Long term (current) use of antithrombotics/antiplatelets; Z88.1 Allergy status to other antibiotic agents
CPT/HCPCS: 62321; J1100

== ENCOUNTER → 2023-10-28 | Outpatient (CLI) | payer MEDICARE, BC ==
[2023-10-28 09:19] VITALS: BP 141/95; PULSE 87; RESP 16
--- NOTE | 2023-10-28 13:58 | P.PAINPG ---
PQRS Measure Charge Sheet Comment: HISTORY OF PRESENT ILLNESS: A 58 yr old male presents today w severe and chronic neck pain x 10-15 yrs secondary to DDD, spondylosis and facet arthropathy without myelopathy for evaluation s/p BEREKET C6-C7 #1. Pt states he experienced 100 % pain relief x 2 wks s/p procedure. Pt states pain level is provoked at 7 /10 in intensity, constant, localized in the lower cervical spine, predominantly axial, sharp in character w occasional shooting pain towards of the head and to the BL shoulders. Pain is provoked by laying supine. Pain is alleviated by PT 6 weeks in August 2022, physician guided exercises daily since September 13, heat, OTC medications, repositioning and rest. Cervical disability pain score at 28. Interventional procedures include BEREKET C6-C7 x1 Medications include Tyl REVIEW OF ORGAN SYSTEMS: CONSTITUTIONAL: No fevers or chills. No recent weight loss. NEUROLOGICAL: + numbness and tingling along the distal extremities. No seizure disorders or headaches. MUSCULOSKELETAL: + pain PSYCHIATRIC: Denies current depression or suicidal thoughts. Physical Examinations : Constitutional : Cooperative , not in acute distress . Neurologic : Cranial nerve II to XII intact. No focal neurological deficits. Psychiatric : alert & oriented x 3. Matching mood & appropriate affect. Judgment & insight intact. Musculoskeletal : Cervical Spine Motor strength in the deltoid and biceps: Normal right side. Normal Left side Motor strength biceps and the wrist extensors: Normal right side . Normal left side Motor strength in the triceps muscle: Normal right side. Normal left side Deep tendon reflexes: Normal at the biceps. Normal at Brachioradialis. Normal at triceps Vertebral body tenderness to deep palpation over C7 Cervical facet loading test: positive bilaterally Spurling test: positive bilaterally over C6-C7 Neck distraction test: positive bilaterally Channing sign: positive bilaterally Lumbar spine Motor strength lower extremities ,thigh and legs 5/5 Right side , 5/5 Left side Deep tendon reflexes : Normal Knee Jerk. Normal Ankle Jerk Vertebral body tenderness over Short Test positive Lumbar facet Loading Test: positive Right / positive Left Range of motion of the lumbar spine Flexion 30 degrees, extension 10 degrees Straight Leg Raise test: Left/ Right positive at degree Ramana test: positive right / positive left. Severe tenderness over the Sacroiliac joint on the Right / Left sides Gaenslen test: positive bilaterally Seated flexion test: positive bilaterally. Sacral spine : Severe tenderness over the Sacroiliac j oint: right side / left side Range of motion: Flexion of the lumbar spine <60 degrees Range of motion: Extension of the lumbar spine <20 degrees Gaenslen's Test positive Ramana test: positive right side / left side Thigh Thrust Test Sacral Thrust Test Imaging: MRI noncontrast of the cervical spine from 01/29/23 reviewed Assessment/ Plan : Cervical DDD Recommendation of BEREKET C6-C6 #2. May need a series of injections for optimal pain relief. Risks, benefits of procedure discussed and patient verbalized understanding. Admits to anti- coagulant use or medical history of diabetes. Protocol for discontinuation/ continuation of medications ariella procedure discussed. Minimal anesthesia provided, if clinically indicated, consisting of Versed and Fentanyl. All questions answered. I have spent greater than 30 minutes on patient care today. Dr Severino was available by phone for the evaluation of this patient. The time was used to review the medical records including relevant urine studies and Prescription history (MAPs), review of the available imaging, evaluation and examination of the patient, coordination of care with the medical staff and if applicable referring physicians, as well as creation of the medical record PQRS Narrative: Hx Alcohol Use (MH) No Home Medications: Ambulatory Orders Amitriptyline HCl [Elavil] 10 mg PO HS 01/07/21 Bictegrav/Emtricit/Tenofov Ala [Biktarvy 50-200-25 mg Tablet] 1 tab PO HS 01/07/21 Famciclovir [Famvir] 500 mg PO BID 01/07/21 Fosamprenavir Calcium [Lexiva] 1,400 mg PO BID 01/07/21 Gabapentin 800 mg PO TID 01/07/21 Pioglitazone [Actos] 30 mg PO DAILY 01/07/21 Terazosin [Hytrin] 2 mg PO DAILY 01/07/21 glipiZIDE [Glucotrol] 7.5 mg PO BID 01/07/21 metFORMIN HCL [Glucophage] 500 mg PO AC-BID 01/07/21 Atorvastatin [Lipitor] 40 mg PO HS #30 tab 01/10/21 Clopidogrel [Plavix] 75 mg PO DAILY #30 tab 01/10/21 ramipriL 1.25 mg PO QAM 10/10/23 Controlled Substance Measures - Controlled Substance Measures Is patient prescribed a controlled substance at discharge?: No
== END ==
LOC: PNWHC3 08:34
PROVIDERS: ATTEND Specialist
DX: M50.323 Other cervical disc degeneration at C6-C7 level (principal); Z88.8 Allergy status to other drugs, medicaments and biological substances
CPT/HCPCS: 99211

== ENCOUNTER 2023-11-14 08:33 | Day surgery (SDC) | payer MEDICARE, BC ==
[2023-11-12 12:13] VITALS: BMI 22.1
[~2023-11-14 08:33] MED LIST changes: -DEXAMETHASONE SOD PHOSPHATE 10 MG/ML 1 ML VIAL ONE; -INSULIN ASPART (NovoLOG) 100 UNIT/ML VIAL SQ ONE
[2023-11-14 09:02] LABS: Glucose,Whole Blood 207 mg/dL (70-110)
[2023-11-14] MEDS: INSULIN ASPART (NovoLOG) 100 UNIT/ML VIAL SQ ONE (09:07)
[2023-11-14 09:32] VITALS: RESP 16; TEMP 98.5
[2023-11-14] MEDS ORDERED: IOPAMIDOL M200 10 ML VIAL ONE (10:07)
[2023-11-14] MEDS ORDERED: DEXAMETHASONE SOD PHOSPHATE 10 MG/ML 1 ML VIAL ONE (10:07)
--- NOTE | 2023-11-14 10:15 | P.PCN ---
Date of Procedure: 11/14/23 Procedure(s) Performed: PROCEDURE 1. Cervical epidural steroid injection under fluoroscopic guidance, C6-7 (fluoroscopy images available in the radiology department ) 2. Cervical epidurogram. PREOPERATIVE DIAGNOSIS: 1- Cervical Degenerative Disc Diseases 2- Cervical radiculopathy. POSTOPERATIVE DIAGNOSIS: : 1- Cervical Degenerative Disc Diseases , 2- Cervical radiculopathy. ANESTHESIA: Local anesthesia with lidocaine 1% 3 ml only EBL 0 PROCEDURE INDICATION: The patient with neck pain and radiculitis unresponsive to conservative treatment consents for procedure. PROCEDURE DESCRIPTION / TECHNIQUE: The patient was seen and identified in the preoperative area. Risks, benefits, complications, including but not limited to infections ,bleeding , allergic reactions to the medications ,and not complete pain releife, and alternatives were discussed with the patient, the patient agreed to proceed with the procedure and signed the consent. Patient was taken to the OR and time out was completed. The patient was placed in the prone position on the procedure table. A pillow was placed under the patients chest to increase the cervical interlaminar space. The cervical area was prepped and draped in the usual sterile fashion. Vital signs were closely monitored during the procedure. Using anterior-posterior fluoroscopy, the C6-7interlaminar space was identified and the skin over this site was marked and then infiltrated with 1% lidocaine subcutaneously. Subsequently, a 20-gauge 3-1/2-inch Tuohy epidural needle was inserted and advanced toward the epidural space by means of the ``hanging-drop technique and guided by AP and lateral fluoroscopy. The correct needle position in the epidural space was verified with the injection of 2 mL of the water soluble contrast dye Isovue-200 and observing an excellent epidurogram with the epidural spread of the dye, after negative aspiration for blood and CSF and in the absence of paresthesias. then, mixture containing 15 mg Dexamethasone and 2 ml of preservative-free normal saline injected and a washout of epidurogram was seen. Needle was withdrawn intact, skin was cleansed, and bandages were applied. Complications= none. Disposition= patient was placed in supine position and transferred to the recovery room area in stable condition and there was no evidence of upper or lower extremity motor or sensory deficit after the procedure patient was discharged from recovery room after discharge criteria met and home discharge instructions was given by the staff and patient will follow with the pain clinic in 2-4 weeks plavix held for 7 days
[2023-11-14 10:25] LABS: Glucose,Whole Blood 194 mg/dL (70-110)
[2023-11-14 10:36] VITALS: PULSE 85
[2023-11-14 11:07] VITALS: BP 136/89
--- NOTE | 2023-11-15 07:57 | FL ---
EXAMINATION TYPE: FL guided pain mgmt statistic Intraoperative/procedural fluoroscopic services were provided. Total fluoroscopy time is 18.5 seconds with a total of 1 submitted images to PACS. Please s ee the operative/procedural note for further details. DAP: [id number] mGym2
== END 2023-11-14 10:36 | disposition home or self-care (01) ==
LOC: ORPAIN 08:33
PROVIDERS: ATTEND Specialist
DX: M50.123 Cervical disc disorder at C6-C7 level with radiculopathy (principal); M47.22 Other spondylosis with radiculopathy, cervical region; B20 Human immunodeficiency virus [HIV] disease; Z79.02 Long term (current) use of antithrombotics/antiplatelets; Z88.8 Allergy status to other drugs, medicaments and biological substances; Z88.6 Allergy status to analgesic agent
CPT/HCPCS: 62321; J1100; Q9966

== ENCOUNTER → 2023-12-04 | Outpatient (CLI) | payer MEDICARE, BC ==
[2023-12-04 09:24] VITALS: BP 137/97; PULSE 89; RESP 16; TEMP 97.5
--- NOTE | 2023-12-04 12:40 | P.PAINPG ---
PQRS Measure Charge Sheet Comment: HISTORY OF PRESENT ILLNESS: A 58 yr old male presents today w severe and chronic neck pain x 10-15 yrs secondary to DDD, spondylosis and facet arthropathy without myelopathy for evaluation s/p BEREKET C6-C7 #2. Pt states he experienced 0 % pain relief x 3 wks s/p procedure. Pt states pain level is provoked at 7 /10 in intensity, constant, localized in the lower cervical spine, predominantly axial, sharp in character w occasional shooting pain towards of the head and to the BL shoulders. Pain is provoked by laying supine. Pain is alleviated by PT 6 weeks in August 2022, physician guided exercises 3 times weekly since September 13, heat, OTC medications, repositioning and rest. Cervical disability pain score at 28. Interventional procedures include BEREKET C6-C7 x2 Medications include Tyl REVIEW OF ORGAN SYSTEMS: CONSTITUTIONAL: No fevers or chills. No recent weight loss. NEUROLOGICAL: + numbness and tingling along the distal extremities. No seizure disorders or headaches. MUSCULOSKELETAL: + pain PSYCHIATRIC: Denies current depression or suicidal thoughts. Physical Examinations : Constitutional : Cooperative , not in acute distress . Neurologic : Cranial nerve II to XII intact. No focal neurological deficits. Psychiatric : alert & oriented x 3. Matching mood & appropriate affect. Judgment & insight intact. Musculoskeletal : Cervical Spine Motor strength in the deltoid and biceps: Normal right side. Normal Left side Motor strength biceps and the wrist extensors: Normal right side . Normal left side Motor strength in the triceps muscle: Normal right side. Normal left side Deep tendon reflexes: Normal at the biceps. Normal at Brachioradialis. Normal at triceps Vertebral body tenderness to deep palpation Cervical facet loading test: positive bilaterally C4-C5, C5-C6 Spurling test: positive bilaterally Neck distraction test: positive bilaterally Channing sign: positive bilaterally Lumbar spine Motor strength lower extremities ,thigh and legs 5/5 Right side , 5/5 Left side Deep tendon reflexes : Normal Knee Jerk. Normal Ankle Jerk Vertebral body tenderness over Short Test positive Lumbar facet Loading Test: positive Right / positive Left Range of motion of the lumbar spine Flexion 30 degrees, extension 10 degrees Straight Leg Raise test: Left/ Right positive at degree Ramana test: positive right / positive left. Severe tenderness over the Sacroiliac joint on the Right / Left sides Gaenslen test: positive bilaterally Seated flexion test: positive bilaterally. Sacral spine : Severe tenderness over the Sacroiliac joint: right side / left side Range of motion: Flexion of the lumbar spine <60 degrees Range of motion: Extension of the lumbar spine <20 degrees Gaenslen's Test positive Ramana test: positive right side / left side Thigh Thrust Test Sacral Thrust Test Imaging: MRI noncontrast of the cervical spine from 01/29/23 reviewed Assessment/ Plan : Cervical DDD Recommendation of BL MBB C4-C5, C5-C6 #1. May need a series of injections, up until RFA, for optimal pain relief. Risks, benefits of procedure discussed and patient verbalized understanding. Admits to anti- coagulant use or medical history of diabetes. Protocol for discontinuation/ continuation of medications ariella procedure discussed. Minimal anesthesia provided, if clinically indicated, consisting of Versed and Fentanyl. All questions answered. I have spent greater than 30 minutes on patient care today. Dr Severino was available by phone for the evaluation of this patient. The time was used to review the medical records including relevant urine studies and Prescription history (MAPs), review of the available imaging, evaluation and examination of the patient, coordination of care with the medical staff and if applicable referring physicians, as well as creation of the medical record PQRS Narrative: Hx Alcohol Use (MH) No Home Medications: Ambulatory Orders Amitriptyline HCl [Elavil] 10 mg PO HS 01/07/21 Bictegrav/Emtricit/Tenofov Ala [Biktarvy 50-200-25 mg Tablet] 1 tab PO HS 01/07/21 Famciclovir [Famvir] 500 mg PO BID 01/07/21 Fosamprenavir Calcium [Lexiva] 1,400 mg PO BID 01/07/21 Gabapentin 800 mg PO TID 01/07/21 Pioglitazone [Actos] 30 mg PO DAILY 01/07/21 Terazosin [Hytrin] 2 mg PO DAILY 01/07/21 glipiZIDE [Glucotrol] 7.5 mg PO BID 01/07/21 metFORMIN HCL [Glucophage] 500 mg PO AC-BID 01/07/21 Atorvastatin [Lipitor] 40 mg PO HS #30 tab 01/10/21 Clopidogrel [Plavix] 75 mg PO DAILY #30 tab 01/10/21 ramipriL 1.25 mg PO QAM 10/10/23 Insulin Aspart [NovoLOG] 6 units SQ TID-W/MEALS 11/12/23 Insulin Glargine,Hum.rec.anlog [Lantus Solostar Pen] 25 units SQ BID 11/12/23 Controlled Substance Measures - Controlled Substance Measures Is patient prescribed a controlled substance at discharge?: No
== END ==
LOC: PNWHC3 08:27
PROVIDERS: ATTEND Specialist
DX: M50.321 Other cervical disc degeneration at C4-C5 level (principal); M50.322 Other cervical disc degeneration at C5-C6 level
CPT/HCPCS: 99211

== ENCOUNTER → 2023-12-25 | Outpatient (CLI) | payer MEDICARE, BC ==
--- NOTE | 2023-12-25 12:02 | XR ---
EXAMINATION TYPE: XR hand complete bilateral, XR finger or thumb bilateral DATE OF EXAM: 12/25/2023 CLINICAL HISTORY: pain TECHNIQUE: Frontal, lateral and oblique images of the bilateral hands and thumbs are obtained. COMPARISON: None. FINDINGS: There is no acute fracture/dislocation evident. The joint spaces appear within normal limi ts. The overlying soft tissue appears unremarkable. IMPRESSION: There is no acute fracture or dislocation. ICD 10 NO FRACTURE, INITIAL EVALUATION
== END | disposition home or self-care (01) ==
LOC: RADXRMAIN 11:27
PROVIDERS: ATTEND Internal Medicine
DX: M77.8 Other enthesopathies, not elsewhere classified (principal); M79.645 Pain in left finger(s); M79.644 Pain in right finger(s); M79.641 Pain in right hand; M79.642 Pain in left hand

== ENCOUNTER 2024-01-03 07:23 | Day surgery (SDC) | payer MEDICARE, BC ==
[2024-01-02 10:09] VITALS: BMI 23.0
[2024-01-03] MEDS: LACTATED RINGERS 1,000 ML IV SCH (07:38)
[2024-01-03 08:00] VITALS: RESP 16; TEMP 97.7
[2024-01-03] MEDS ORDERED: MIDAZOLAM 2 MG/2 ML VIAL ONE (08:18)
[2024-01-03] MEDS ORDERED: fentaNYL (PF) 50 MCG/ML 2 ML AMP ONE (08:18)
[2024-01-03] MEDS ORDERED: ROPIVACAINE 5MG/ML 20ML VIAL ONE (08:25)
--- NOTE | 2024-01-03 08:39 | P.PCN ---
Date of Procedure: 01/03/24 Procedure(s) Performed: PREOPERATIVE DIAGNOSIS: 1-Cervical Spondylosis with Facet Arthropathy.without myelopathy. 2-cervical degenerative disc disease POSTOPERATIVE DIAGNOSIS:1-cervical spondylosis with facet arthropathy without myelopathy. 2-cervical degenerative disc disease PROCEDURES: Diagnostic bilateral C4 , C5 , C6 medial branch blocks, with fluoroscopic guidance (fluoroscopy images available in radiology department ) ( to target the facet joint at bilateral C4- 5 , C5- 6 )#1st ANESTHESIA: Monitored anesthesia care as per anesthesia department . EBL: Minimal PROCEDURE INDICATION: The patient with neck pain secondary to cervical arthropathy unresponsive to more conservative treatments. PROCEDURE DESCRIPTION / TECHNIQUE: The patient was seen and identified in the preoperative area. Risks, benefits, complications, and alternatives were discussed with the patient, the patient agreed to proceed with the procedure and signed the consent. IV was started. Vital signs remained stable throughout the procedure. Patient was taken to the OR and time out was completed. The patient was placed in the prone position on the procedure table. A pillow was placed under the patients chest to increase the cervical interlaminar space. The cervical area was prepped and draped in the usual sterile fashion. Critical pause was taken. Vital signs were closely monitored during the procedure. Conscious sedation was used during the procedure to decrease patients anxiety. Using cross-table lateral fluoroscopy, the centroid of the trapezoid of right C4 , C5 and C6, was identified, marked, and localized with 1% lidocaine 1 ml at each level for skin and Sub Q infiltrations . Subsequently, a 22 G 3 spinal needle was advanced guided by fluoroscopy to the centroid of the trapezoid of Right C4 , C5, C6 . Christopher tip position was confirmed at the centroid of the trapezoids of Right C4 , C5 ,C6 with anteroposterior fluoroscopy. Subsequently, 1.5 ml of preservative-free Ropivacaine 0.5% and half ml was injected after negative aspiration for blood and CSF. Christopher was then removed intact the same procedure was repeated at the left C4 , C5 , and C6 levels. COMPLICATIONS: No acute complications. DISPOSITION / PLANS: The patient was placed in a supine position and transferred to the recovery area in a stable condition for observation and was discharged from the recovery room after meeting discharge criteria. Home discharge instructions given to the patient by the staff. The patient was reexamined prior to discharge. The patient will schedule a follow up in the clinic in 2-4 weeks.
[2024-01-03] MEDS: IV FLUID CONTINUATION 1,000 ML IV ONE (08:45)
[2024-01-03 09:26] VITALS: BP 157/80; PULSE 78
--- NOTE | 2024-01-03 09:48 | FL ---
Fluoroscopy History: FACET BLOCK KIERRA 21 sec fluoro, DAP .[id number] mGym2
== END 2024-01-03 09:12 | disposition home or self-care (01) ==
LOC: ORPAIN 07:23
PROVIDERS: ATTEND Specialist
DX: M47.812 Spondylosis without myelopathy or radiculopathy, cervical region (principal); M50.322 Other cervical disc degeneration at C5-C6 level; E78.5 Hyperlipidemia, unspecified; E11.42 Type 2 diabetes mellitus with diabetic polyneuropathy; K21.9 Gastro-esophageal reflux disease without esophagitis; G40.909 Epilepsy, unspecified, not intractable, without status epilepticus; Z87.891 Personal history of nicotine dependence; Z86.73 Personal history of transient ischemic attack (TIA), and cerebral infarction without residual deficits; Z79.02 Long term (current) use of antithrombotics/antiplatelets; Z79.01 Long term (current) use of anticoagulants; Z79.899 Other long term (current) drug therapy; Z21 Asymptomatic human immunodeficiency virus [HIV] infection status; Z79.84 Long term (current) use of oral hypoglycemic drugs
CPT/HCPCS: 64490; 64491 ×2; J2250; J3010; J2795

== ENCOUNTER → 2024-01-22 | Outpatient (CLI) | payer MEDICARE, BC ==
[2024-01-22 09:51] VITALS: BP 172/102; PULSE 81; RESP 16; TEMP 97.1
--- NOTE | 2024-01-22 13:35 | P.PAINPG ---
PQRS Measure Charge Sheet Comment: HISTORY OF PRESENT ILLNESS: A 58 yr old male presents today w severe and chronic neck pain x 10-15 yrs secondary to DDD, spondylosis and facet arthropathy without myelopathy for evaluation s/p BL MBB C4-C6 #1. Pt states he experienced 100 % pain relief x 6 hrs s/p procedure. Pt states pain level is provoked at 8 /10 in intensity, constant, localized in the lower cervical spine, predominantly axial, sharp in character w occasional shooting pain towards of the head and to the BL shoulders. Pain is provoked by laying supine. Pain is alleviated by PT 6 weeks in August 2022, physician guided exercises 3 times weekly since September 13, heat, OTC medications, repositioning and rest. Cervical disability pain score at 27. Interventional procedures include BEREKET C6-C7 x2, BL MBB C4-C6 x1 Medications include Tyl REVIEW OF ORGAN SYSTEMS: CONSTITUTIONAL: No fevers or chills. No recent weight loss. NEUROLOGICAL: + numbness and tingling along the distal extremities. No seizure disorders or headaches. MUSCULOSKELETAL: + pain PSYCHIATRIC: Denies current depression or suicidal thoughts. Physical Examinations : Constitutional : Cooperative , not in acute distress . Neurologic : Cranial nerve II to XII intact. No focal neurological deficits. Psychiatric : alert & oriented x 3. Matching mood & appropriate affect. Judgment & insight intact. Musculoskeletal : Cervical Spine Motor strength in the deltoid and biceps: Normal right side. Normal Left side Motor strength biceps and the wrist extensors: Normal right side . Normal left side Motor strength in the triceps muscle: Normal right side. Normal left side Deep tendon reflexes: Normal at the biceps. Normal at Brachioradialis. Normal at triceps Vertebral body tenderness to deep palpation Cervical facet loading test: positive bilaterally C4-C5, C5-C6 Spurling test: positive bilaterally Neck distraction test: positive bilaterally Channing sign: positive bilaterally Lumbar spine Motor strength lower extremities ,thigh and legs 5/5 Right side , 5/5 Left side Deep tendon reflexes : Normal Knee Jerk. Normal Ankle Jerk Vertebral body tenderness over Short Test positive Lumbar facet Loading Test: positive Right / positive Left Range of motion of the lumbar spine Flexion 30 degrees, extension 10 degrees Straight Leg Raise test: Left/ Right positive at degree Ramana test: positive right / positive left. Severe tenderness over the Sacroiliac joint on the Right / Left sides Gaenslen test: positive bilaterally Seated flexion test: positive bilaterally. Sacral spine : Severe tenderness over the Sacroiliac joint: right side / left side Range of motion: Flexion of the lumbar spine <60 degrees Range of motion: Extension of the lumbar spine <20 degrees Gaenslen's Test positive Ramana test: positive right side / left side Thigh Thrust Test Sacral Thrust Test Imaging: MRI noncontrast of the cervical spine from 01/29/23 reviewed Assessment/ Plan : Cervical DDD Recommendation of BL MBB C4-C5, C5-C6 #2. May need a series of injections, up until RFA, for optimal pain relief. Risks, benefits of procedure discussed and patient verbalized understanding. Admits to anti- coagulant use or medical history of diabetes. Protocol for discontinuation/ continuation of medications ariella procedure discussed. Minimal anesthesia provided, if clinically indicated, consisting of Versed and Fentanyl. All questions answered. I have spent greater than 30 minutes on patient care today. Dr Severino was available by phone for the evaluation of this patient. The time was used to review the medical records including relevant urine studies and Prescription history (MAPs), review of the available imaging, evaluation and examination of the patient, coordination of care with the medical staff and if applicable referring physicians, as well as creation of the medical record PQRS Narrative: Hx Alcohol Use (MH) No Home Medications: Ambulatory Orders Amitriptyline HCl [Elavil] 10 mg PO HS 01/07/21 Bictegrav/Emtricit/Tenofov Ala [Biktarvy 50-200-25 mg Tablet] 1 tab PO HS 01/07/21 Famciclovir [Famvir] 500 mg PO BID 01/07/21 Fosamprenavir Calcium [Lexiva] 1,400 mg PO BID 01/07/21 Gabapentin 800 mg PO TID 01/07/21 Pioglitazone [Actos] 30 mg PO DAILY 01/07/21 Terazosin [Hytrin] 2 mg PO DAILY 01/07/21 glipiZIDE [Glucotrol] 7.5 mg PO BID 01/07/21 metFORMIN HCL [Glucophage] 500 mg PO AC-BID 01/07/21 Atorvastatin [Lipitor] 40 mg PO HS #30 tab 01/10/21 Clopidogrel [Plavix] 75 mg PO DAILY #30 tab 01/10/21 ramipriL 1.25 mg PO QAM 10/10/23 Insulin Aspart [NovoLOG] 6 units SQ TID-W/MEALS 11/12/23 Insulin Glargine,Hum.rec.anlog [Lantus Solostar Pen] 25 units SQ BID 11/12/23 Controlled Substance Measures - Controlled Substance Measures Is patient prescribed a controlled substance at discharge?: No
== END ==
LOC: PNWHC3 08:23
PROVIDERS: ATTEND Specialist
DX: M50.321 Other cervical disc degeneration at C4-C5 level (principal); M50.322 Other cervical disc degeneration at C5-C6 level; M47.812 Spondylosis without myelopathy or radiculopathy, cervical region; Z88.8 Allergy status to other drugs, medicaments and biological substances
CPT/HCPCS: 99211

== ENCOUNTER → 2024-03-04 | Outpatient (CLI) | payer MEDICARE, BC ==
[2024-03-04 08:36] VITALS: BP 128/91; PULSE 86; RESP 16; TEMP 97.3
--- NOTE | 2024-03-04 14:47 | P.PAINPG ---
PQRS Measure Charge Sheet Comment: HISTORY OF PRESENT ILLNESS: A 58 yr old male presents today w severe and chronic neck pain x 10-15 yrs secondary to DDD, spondylosis and facet arthropathy without myelopathy for evaluation s/p BL MBB C4-C6 #2. Pt states he experienced 100 % pain relief x 48 hrs s/p procedure. Pt states pain level is provoked at 8 /10 in intensity, constant, localized in the lower cervical spine, predominantly axial, sharp in character w occasional shooting pain towards of the head and to the BL shoulders. Pain is provoked by laying supine. Pain is alleviated by PT 6 weeks in August 2022, physician guided exercises 3 times weekly since September 13, heat, OTC medications, repositioning and rest. Cervical disability pain score at 26. Interventional procedures include BEREKET C6-C7 x2, BL MBB C4-C6 x2 Medications include Tyl, Cannabis use for pain REVIEW OF ORGAN SYSTEMS: CONSTITUTIONAL: No fevers or chills. No recent weight loss. NEUROLOGICAL: + numbness and tingling along the distal extremities. No seizure disorders or headaches. MUSCULOSKELETAL: + pain PSYCHIATRIC: Denies current depression or suicidal thoughts. Physical Examinations : Constitutional : Cooperative , not in acute distress . Neurologic : Cranial nerve II to XII intact. No focal neurological deficits. Psychiatric : alert & oriented x 3. Matching mood & appropriate affect. Judgment & insight intact. Musculoskeletal : Cervical Spine Motor strength in the deltoid and biceps: Normal right side. Normal Left side Motor strength biceps and the wrist extensors: Normal right side . Normal left side Motor strength in the triceps muscle: Normal right side. Normal left side Deep tendon reflexes: Normal at the biceps. Normal at Brachioradialis. Normal at triceps Vertebral body tenderness to deep palpation Cervical facet loading test: positive bilaterally C4-C5, C5-C6 Spurling test: positive bilaterally Neck distraction test: positive bilaterally Channing sign: positive bilaterally Lumbar spine Motor strength lower extremities ,thigh and legs 5/5 Right side , 5/5 Left side Deep tendon reflexes : Normal Knee Jerk. Normal Ankle Jerk Vertebral body tenderness over Short Test positive Lumbar facet Loading Test: positive Right / positive Left Range of motion of the lumbar spine Flexion 30 degrees, extension 10 degrees Straight Leg Raise test: Left/ Right positive at degree Ramana test: positive right / positive left. Severe tenderness over the Sacroiliac joint on the Right / Left sides Gaenslen test: positive bilaterally Seated flexion test: positive bilaterally. Sacral spine : Severe tenderness over the Sacroiliac joint: right side / left side Range of motion: Flexion of the lumbar spine <60 degrees Range of motion: Extension of the lumbar spine <20 degrees Gaenslen's Test positive Ramana test: positive right side / le ft side Thigh Thrust Test Sacral Thrust Test Imaging: MRI noncontrast of the cervical spine from 01/29/23 reviewed Assessment/ Plan : Cervical DDD Recommendation of BL RFA C4-C5, C5-C6. Exhibited optimal pain relief w prior BL MBB procedures. Risks, benefits of procedure discussed and patient verbalized understanding. Admits to anti- coagulant use or medical history of diabetes. Protocol for discontinuation/ continuation of medications ariella procedure discussed. Minimal anesthesia provided, if clinically indicated, consisting of Versed and Fentanyl. All questions answered. I have spent greater than 30 minutes on patient care today. Dr Severino was available by phone for the evaluation of this patient. The time was used to review the medical records including relevant urine studies and Prescription history (MAPs), review of the available imaging, evaluation and examination of the patient, coordination of care with the medical staff and if applicable referring physicians, as well as creation of the medical record PQRS Narrative: Hx Alcohol Use (MH) No Home Medications: Ambulatory Orders Amitriptyline HCl [Elavil] 10 mg PO HS 01/07/21 Bictegrav/Emtricit/Tenofov Ala [Biktarvy 50-200-25 mg Tablet] 1 tab PO HS 01/07/21 Famciclovir [Famvir] 500 mg PO BID 01/07/21 Fosamprenavir Calcium [Lexiva] 1,400 mg PO BID 01/07/21 Gabapentin 800 mg PO TID 01/07/21 Pioglitazone [Actos] 30 mg PO DAILY 01/07/21 glipiZIDE [Glucotrol] 7.5 mg PO TID 01/07/21 metFORMIN HCL [Glucophage] 500 mg PO AC-BID 01/07/21 Atorvastatin [Lipitor] 40 mg PO HS #30 tab 01/10/21 Clopidogrel [Plavix] 75 mg PO DAILY #30 tab 01/10/21 ramipriL 1.25 mg PO QAM 10/10/23 Insulin Aspart [NovoLOG] 6 units SQ TID-W/MEALS 11/12/23 Insulin Glargine,Hum.rec.anlog [Lantus Solostar Pen] 25 units SQ BID 11/12/23 Tamsulosin [Flomax] 0.4 mg PO DAILY 02/12/24 Unk B Complex 1 tab PO DAILY 02/12/24 Unk Multi Vitamin 1 tab PO DAILY 02/12/24 Unk Vitamin D3 1 tab PO DAILY 02/12/24 Controlled Substance Measures - Controlled Substance Measures Is patient prescribed a controlled substance at discharge?: No
== END ==
LOC: PNWHC3 08:01
PROVIDERS: ATTEND Specialist
DX: M50.321 Other cervical disc degeneration at C4-C5 level (principal); M50.322 Other cervical disc degeneration at C5-C6 level; Z88.8 Allergy status to other drugs, medicaments and biological substances
CPT/HCPCS: 99211

== ENCOUNTER → 2024-03-31 | Day surgery (SDC) | payer MEDICARE, BC ==
[~2024-03-31] MED LIST changes: -LACTATED RINGERS 1,000 ML IV SCH; +MIDAZOLAM 2 MG/2 ML VIAL ONE; +ROPIVACAINE 5MG/ML 20ML VIAL ONE; +fentaNYL (PF) 50 MCG/ML 2 ML AMP ONE; +methylPREDNISolone ACETATE 40 MG/ML 1 ML VIAL ONE
[2024-03-31] MEDS: LACTATED RINGERS 1,000 ML IV SCH (06:45)
[2024-03-31 06:47] VITALS: TEMP 97.2
[2024-03-31] MEDS: IV FLUID CONTINUATION 1,000 ML IV ONE ×2 (06:47→07:33)
[2024-03-31 06:50] LABS: Glucose,Whole Blood 155 mg/dL (70-110)
--- NOTE | 2024-03-31 07:34 | P.PCN ---
Date of Procedure: 03/31/24 Procedure(s) Performed: PREOPERATIVE DIAGNOSIS: Cervical spondylosis with Facet Arthropathy without myelopathy. POSTOPERATIVE DIAGNOSIS: Cervical spondylosis with Facet Arthropathy without myelopathy. PROCEDURES: Radiofrequency thermocoagulation, Left C4, C5, C6 medial branch with Fluroscopy Guidence(fluoroscopy was available in Radiology department ) (to denervate the facet joint at Left C4- 5 , C5- 6 ) ANESTHESIA: moderate sedation with fentanyl 100 micrograms and Versed 2 mg (sedation start time 07:08, end time at 07:25 ) EBL: Minimal PROCEDURE INDICATION: The patient with neck pain secondary to cervical arthropathy who had more than 50% relief of her pain with previous diagnostic cervical medial branch block. PROCEDURE DESCRIPTION / TECHNIQUE: The patient was seen and identified in the preoperative area. Risks, benefits, complications, and alternatives were discussed with the patient, the patient agreed to proceed with the procedure and signed the consent. IV was started. Vital signs remained stable throughout the procedure. Patient was taken to the OR and time out was completed. The patient was placed in the prone position on the procedure table. A pillow was placed under the patients chest to increase the cervical interlaminar space. The cervical area was prepped and draped in the usual sterile fashion. Critical pause was taken. Vital signs were closely monitored during the procedure. Conscious sedation was used during the procedure to decrease patients anxiety. Using cross-table lateral fluoroscopy, the centroid of the trapezoid of Left C4, C5, and C6 were identified, marked, and localized with 1% lidocaine. Subsequently, a 20 [id number] radiofrequency cannula with a 10-mm active tip was advanced guided by fluoroscopy to the centroid of the trapezoid of left C4, C5, and C6 . Needle tip position was confirmed at the centroid of the trapezoids of Left C4, C5, and C6 with anteroposterior fluoroscopy. Each site then underwent sensory testing at 50 Hz and 0 to 1 volt and motor testing at 2 Hz and 0 to 3 volt with local stimulation, but no radicular symptoms down the arm. Thereafter each sites underwent radiofrequency thermocoagulation at 80 degrees celsius for 90 seconds after injecting 0.5 ml of PF Ropivacaine 0.5 %. After thermocoagulation, 1 ml of the block solution containing Depo-Medrol 40 mg and 5 mL of preservative-free normal saline was injected at the Left C4, C5, and C6 levels after negative aspiration of CSF and blood and with no paresthesias. Cannulas were retracted while injecting lidocaine 1% until the needle is out. Skin was cleansed and bandages were applied. COMPLICATIONS: No acute complications. DISPOSITION / PLANS: The patient was placed in a supine position and transferred to the recovery area in a stable condition for observation and was discharged from the recovery room after meeting discharge criteria. Home discharge instructions given to the patient by the staff. The patient was reexamined prior to discharge. The patient will schedule a follow up in the clinic in 2-4 weeks. And we will do the RFA for the right side
[2024-03-31 07:37] VITALS: RESP 14
[2024-03-31 07:52] VITALS: BP 142/87; PULSE 81
--- NOTE | 2024-03-31 08:11 | FL ---
Fluoroscopy INDICATION: Pain FINDINGS: Fluoroscopy time: 5.4 seconds. Total dose area product (DAP) in uGy*m?, mGy*cm? (or similar): 0.77456 Images obtained: 4. IMPRESSION: 1. Documentation of fluoroscopy.
== END ==
LOC: ORPAIN 06:09
PROVIDERS: ATTEND Specialist
DX: M47.812 Spondylosis without myelopathy or radiculopathy, cervical region (principal); E11.9 Type 2 diabetes mellitus without complications; Z79.84 Long term (current) use of oral hypoglycemic drugs; Z79.4 Long term (current) use of insulin; Z79.02 Long term (current) use of antithrombotics/antiplatelets; Z88.8 Allergy status to other drugs, medicaments and biological substances; Z21 Asymptomatic human immunodeficiency virus [HIV] infection status
CPT/HCPCS: 64633; 64634; 99152; J2250; J3010; J2795; J1010

== ENCOUNTER → 2024-04-20 | Outpatient (CLI) | payer MEDICARE, BC ==
--- NOTE | 2024-04-26 21:37 | CTL ---
EXAMINATION TYPE: CT Low Dose Lung DATE OF EXAM ORDERED: 04/20/2024 HISTORY: 58-year-old male Z12.2, Z87.891, former smoker with 30 pack-year history. Lung cancer screen ing CT DLP: 89.[address] CTDI: 2.4 mGy Automated exposure control for dose reduction was used. SCREENING VISIT: Annual follow-up COMPARISON: 04/18/2023 TECHNIQUE: Low dose computed tomography scan was performed through the chest at 1 mm thick sections a nd reconstructed images in multiple planes at 1 mm and [address] DIAGNOSTIC QUALITY: Satisfactory FINDINGS: Heart is normal size without pericardial effusion. 3 vessel coronary artery calcifications are presen t and are unremarkable for coronary artery disease. Ectatic ascending aorta 3.6 cm. Conventional arch vessel branching anatomy. No thoracic lymph adenopathy by CT size criteria. Mild diffuse bronchial wall thickening. Minimal biapical pleural parenchymal scarring. No consolidati on or pleural effusion. Stable tiny calcified granuloma right base, axial image 22. No suspicious pulmonary nodules seen. Visualized upper abdomen shows no gross abnormality. Prominent ingested material within the stomach. Bones: No osseous destructive process. IMPRESSION: 1. LungRADS 2, benign. No new suspicious pulmonary nodules. 2. Three-vessel coronary calcifications. CT LUNG RAD AND CT CHEST RECOMMENDATION: Lung-Rad 2 Benign Appearance or Behavior: Continue annual sc reening with LDCT in 12 months. S Modifier (other clinically significant findings): None
== END | disposition home or self-care (01) ==
LOC: RADCTMAIN 13:07
PROVIDERS: ATTEND Internal Medicine
DX: Z12.2 Encounter for screening for malignant neoplasm of respiratory organs (principal); I25.10 Atherosclerotic heart disease of native coronary artery without angina pectoris; Z87.891 Personal history of nicotine dependence
CPT/HCPCS: 71271

== ENCOUNTER → 2024-04-23 | Outpatient (CLI) | payer MEDICARE, BC ==
[2024-04-23 16:38] LABS: ALT 41 U/L (10-49); AST 37 U/L (14-35); Albumin 4.6 g/dL (3.8-4.9); Albumin/Globulin Ratio 1.92 Ratio (1.60-3.17); Alkaline Phosphatase 55 U/L (41-126); BUN/Creat Ratio 20.67 Ratio (12.00-20.00); Blood Urea Nitrogen 18.6 mg/dL (9.0-27.0); Calcium 9.7 mg/dL (8.7-10.3); Carbon Dioxide 25.1 mmol/L (21.6-31.8); Chloride 102 mmol/L (96-109); Chol/HDL Ratio 4.44 Ratio; Globulin 2.4 g/dL (1.6-3.3); Glucose 120 mg/dL (70-110); LDL Cholesterol,Calculated 91.6 mg/dL (0.0-131.0); Potassium 4.4 mmol/L (3.5-5.5); Sodium 141 mmol/L (135-145); Total Bilirubin 0.4 mg/dL (0.3-1.2)
== END | disposition home or self-care (01) ==
LOC: LABWHC1 07:36
PROVIDERS: ATTEND Internal Medicine Endocrinology, Diabetes & Metabolism
DX: E11.65 Type 2 diabetes mellitus with hyperglycemia (principal)
CPT/HCPCS: 36415; 80053; 80061; 82043; 82570; 83036; 84443

== ENCOUNTER 2024-04-24 05:31 | Day surgery (SDC) | payer MEDICARE, BC ==
[2024-04-24] MEDS: IV FLUID CONTINUATION 1,000 ML IV ONE (06:35)
[2024-04-24] MEDS: LACTATED RINGERS 1,000 ML IV SCH (06:40)
[2024-04-24 06:45] LABS: Glucose,Whole Blood 146 mg/dL (70-110)
[2024-04-24 06:47] VITALS: TEMP 98
[2024-04-24] MEDS ORDERED: ROPIVACAINE 5MG/ML 20ML VIAL ONE (07:00)
[2024-04-24] MEDS ORDERED: fentaNYL (PF) 50 MCG/ML 2 ML AMP ONE (07:00)
[2024-04-24] MEDS ORDERED: methylPREDNISolone ACETATE 40 MG/ML 1 ML VIAL ONE (07:00)
[2024-04-24] MEDS ORDERED: MIDAZOLAM 2 MG/2 ML VIAL ONE (07:00)
--- NOTE | 2024-04-24 07:24 | P.PCN ---
Date of Procedure: 04/24/24 Procedure(s) Performed: PREOPERATIVE DIAGNOSIS: Cervical spondylosis with Facet Arthropathy without myelopathy. POSTOPERATIVE DIAGNOSIS: Cervical spondylosis with Facet Arthropathy without myelopathy. PROCEDURES: Radiofrequency thermocoagulation, right C4, C5, C6 medial branch with Fluroscopy Guidence(fluoroscopy was available in Radiology department ) (to denervate the facet joint at right C4- 5 , C5- 6 ) ANESTHESIA: moderate sedation with fentanyl 100 micrograms and Versed 2 mg (sedation start time 07:04, end time at 07:20 ) EBL: Minimal PROCEDURE INDICATION: The patient with neck pain secondary to cervical arthropathy who had more than 50% relief of her pain with previous diagnostic cervical medial branch block. PROCEDURE DESCRIPTION / TECHNIQUE: The patient was seen and identified in the preoperative area. Risks, benefits, complications, and alternatives were discussed with the patient, the patient agreed to proceed with the procedure and signed the consent. IV was started. Vital signs remained stable throughout the procedure. Patient was taken to the OR and time out was completed. The patient was placed in the prone position on the procedure table. A pillow was placed under the patients chest to increase the cervical interlaminar space. The cervical area was prepped and draped in the usual sterile fashion. Critical pause was taken. Vital signs were closely monitored during the procedure. Conscious sedation was used during the procedure to decrease patients anxiety. Using cross-table lateral fluoroscopy, the centroid of the trapezoid of right C4, C5, and C6 were identified, marked, and localized with 1% lidocaine. Subsequently, a 20 -it radiofrequency cannula with a 10-mm active tip was advanced guided by fluoroscopy to the centroid of the trapezoid of left C4, C5, and C6 . Needle tip position was confirmed at the centroid of the trapezoids of right C4, C5, and C6 with anteroposterior fluoroscopy. Each site then underwent sensory testing at 50 Hz and 0 to 1 volt and motor testing at 2 Hz and 0 to 3 volt with local stimulation, but no radicular symptoms down the arm. Thereafter each sites underwent radiofrequency thermocoagulation at 80 degrees celsius for 90 seconds after injecting 0.5 ml of PF Ropivacaine 0.5 %. After thermocoagulation, 1 ml of the block solution containing Depo-Medrol 40 mg and 3 mL of preservative-free normal saline was injected at the right C4, C5, and C6 levels after negative aspiration of CSF and blood and with no paresthesias. Cannulas were retracted while injecting lidocaine 1% until the needle is out. Skin was cleansed and bandages were applied. COMPLICATIONS: No acute complications. DISPOSITION / PLANS: The patient was placed in a supine position and transferred to the recovery area in a stable condition for observation and was discharged from the recovery room after meeting discharge criteria. Home discharge instructions given to the patient by the staff. The patient was reexamined prior to discharge. The patient will schedule a follow up in the clinic in 2-4 weeks.
[2024-04-24] MEDS: LACTATED RINGERS 1,000 ML IV ONE (07:27)
[2024-04-24 07:34] VITALS: RESP 16
[2024-04-24 07:53] VITALS: BP 124/83; PULSE 80
--- NOTE | 2024-04-24 08:08 | FL ---
Fluoroscopy History: CERVICAL RF Cervical RF with Akil Novoa. 5.1 sec. .[id number] DAP. 2 images saved.
== END 2024-04-24 07:55 | disposition home or self-care (01) ==
LOC: ORPAIN 05:31
PROVIDERS: ATTEND Specialist
DX: M47.812 Spondylosis without myelopathy or radiculopathy, cervical region (principal); Z88.8 Allergy status to other drugs, medicaments and biological substances; Z79.02 Long term (current) use of antithrombotics/antiplatelets; Z79.899 Other long term (current) drug therapy; Z79.84 Long term (current) use of oral hypoglycemic drugs
CPT/HCPCS: 64633; 64634; J2250; J3010; J2795; J1010; 99152

== ENCOUNTER → 2024-05-11 | Outpatient (CLI) | payer MEDICARE, BC | LOC: PNWHC3 13:00 | PROVIDERS: ATTEND Specialist | DX: M47.812 Spondylosis without myelopathy or radiculopathy, cervical region | CPT/HCPCS: 99211 ==

== ENCOUNTER → 2024-08-07 | Outpatient (CLI) | payer MEDICARE, BC ==
[2024-08-07 15:12] LABS: Basophils # (A) 0.02 X 10*3/uL (0.00-0.10); Basophils % (A) 0.3 %; Eosinophils # (A) 0.21 X 10*3/uL (0.04-0.35); Eosinophils % (A) 3.1 %; HCT 43.5 % (39.6-50.0); HGB 14.2 g/dL (13.0-17.0); Lymphocytes # (A) 1.78 X 10*3/uL (0.90-5.00); Lymphocytes % (A) 26.2 %; MCH 27.9 pg (27.0-32.0); MCHC 32.6 g/dL (32.0-37.0); MCV 85.5 FL (80.0-97.0); Mean Platelet Volume 10.3 FL (9.5-12.2); Monocytes # (A) 0.48 X 10*3/uL (0.20-1.00); Monocytes % (A) 7.1 %; NRBC Per 100 WBC 0 X 10*3/uL (0.00-0.01); Neutrophils # (A) 4.29 X 10*3/uL (1.80-7.70); Platelet Count 227 X 10*3/uL (140-440); RBC 5.09 X 10*6/uL (4.40-5.60); RDW 14.8 % (11.5-14.5)
== END | disposition home or self-care (01) ==
LOC: LABWHC1 07:42
PROVIDERS: ATTEND Internal Medicine
DX: I10 Essential (primary) hypertension (principal); M81.0 Age-related osteoporosis without current pathological fracture; N40.0 Benign prostatic hyperplasia without lower urinary tract symptoms
CPT/HCPCS: 84443; 85025; 82306; 36415; G0103

== ENCOUNTER → 2024-08-28 | Outpatient (CLI) | payer MEDICARE, BC ==
[2024-08-28 15:47] LABS: BUN/Creat Ratio 16.88 Ratio (12.00-20.00); Blood Urea Nitrogen 13.5 mg/dL (9.0-27.0); Chloride 104 mmol/L (96-109); Glucose 155 mg/dL (70-110); Potassium 4.4 mmol/L (3.5-5.5); Sodium 144 mmol/L (135-145)
[2024-08-28 15:48] LABS: ALT 58 U/L (10-49); AST 39 U/L (14-35); Albumin 4.3 g/dL (3.8-4.9); Albumin/Globulin Ratio 1.65 Ratio (1.60-3.17); Alkaline Phosphatase 47 U/L (41-126); Calcium 9.4 mg/dL (8.7-10.3); Carbon Dioxide 26.1 mmol/L (21.6-31.8); Globulin 2.6 g/dL (1.6-3.3); Total Bilirubin 0.3 mg/dL (0.3-1.2); Total Protein 6.9 g/dL (6.2-8.2)
[2024-08-28 20:00] LABS: C-Peptide 1.98 ng/mL (0.81-3.85)
== END | disposition home or self-care (01) ==
LOC: LABWHC1 07:57
PROVIDERS: ATTEND Internal Medicine Endocrinology, Diabetes & Metabolism
DX: E11.65 Type 2 diabetes mellitus with hyperglycemia (principal)
CPT/HCPCS: 36415; 80053; 84681

== ENCOUNTER → 2024-09-24 | Outpatient (CLI) | payer MEDICARE, BC ==
[2024-09-24 09:40] VITALS: BP 155/102; PULSE 91; RESP 16; TEMP 97.5
--- NOTE | 2024-09-24 13:36 | P.PAINPG ---
Objective - Vital Signs Vital signs: Vital Signs Temp 97.5 F L 09/24/24 09:36 Pulse 91 09/24/24 09:36 Resp 16 09/24/24 09:36 BP 155/102 09/24/24 09:36 Pulse Ox 95 09/24/24 09:36 FiO2 Intake & Output 09/23/24 09/24/24 09/24/24 18:59 06:59 18:59 Weight 68.039 kg PQRS Measure Charge Sheet Mode of Arrival: Ambulatory Comment: HISTORY OF PRESENT ILLNESS: A 59 yr old male presents today w severe and chronic neck pain x 10-15 yrs secondary to radiculopathy, spondylosis and facet arthropathy without myelopathy for evaluation s/p BL RFA C4-C5, C5-C6. Pt states he experienced 80 % pain relief s/p procedure. Pt states pain level is provoked at 8 /10 in intensity, intermittent, localized in the lower cervical spine, predominantly axial, sharp in character w occasional shooting pain towards of the head and to the BL shoulders. Pain is provoked by laying supine. Pain is alleviated by PT 6 weeks in August 2022, physician guided exercises 3 times weekly since September 13, heat, OTC medications, THC, repositioning and rest. Interventional procedures include BEREKET C6-C7 x2, BL RFA C4-C6 (Mar-Apr 2024) Medications include Tyl, Cannabis use for pain REVIEW OF ORGAN SYSTEMS: CONSTITUTIONAL: No fevers or chills. No recent weight loss. NEUROLOGICAL: + numbness and tingling along the distal extremities. No seizure disorders or headaches. MUSCULOSKELETAL: + pain PSYCHIATRIC: Denies current depression or suicidal thoughts. Physical Examinations : Constitutional : Cooperative , not in acute distress . Neurologic : Cranial nerve II to XII intact. No focal neurological deficits. Psychiatric : alert & oriented x 3. Matching mood & appropriate affect. Judgment & insight intact. Musculoskeletal : Cervical Spine Motor strength in the deltoid and biceps: Normal right side. Normal Left side Motor strength biceps and the wrist extensors: Normal right side . Normal left side Motor strength in the triceps muscle: Normal right side. Normal left side Deep tendon reflexes: Normal at the biceps. Normal at Brachioradialis. Normal at triceps Vertebral body tenderness to deep palpation Cervical facet loading test: positive bilaterally C4-C5, C5-C6 Spurling test: positive bilaterally Neck distraction test: positive bilaterally Channing sign: positive bilaterally Lumbar spine Motor strength lower extremities ,thigh and legs 5/5 Right side , 5/5 Left side Deep tendon reflexes : Normal Knee Jerk. Normal Ankle Jerk Vertebral body tenderness over Short Test positive Lumbar facet Loading Test: positive Right / positive Left Range of motion of the lumbar spine Flexion 30 degrees, extension 10 degrees Straight Leg Raise test: Left/ Right positive at degree Ramana test: positive right / positive left. Severe tenderness over the Sacroiliac joint on the Right / Left sides Gaenslen test: positive bilaterally Seated flexion test: positive bilaterally. Sacral spine : Severe tenderness over the Sacroiliac joint: right side / left side Range of motion: Flexion of the lumbar spine <60 degrees Range of motion: Extension of the lumbar spine <20 degrees Gaenslen's Test positive Ramana test: positive right side / left side Thigh Thrust Test Sacral Thrust Test Imaging: MRI noncontrast of the cervical spine from 01/29/23 reviewed Assessment/ Plan : Cervical radiculopathy Recommendation of PT integrated w traction x 6 wks M54.12 . All questions answered. I have spent greater than 30 minutes on patient care today. Dr Severino was available by phone for the evaluation of this patient. The time was used to review the medical records including relevant urine studies and Prescription history (MAPs), review of the available imaging, evaluation and examination of the patient, coordination of care with the medical staff and if applicable referring physicians, as well as creation of the medical record - Pain Location Bilateral Lower Neck Non-Pharmacological Interventions: Chiropractic Treatment, Heat, Inactivity, Physical Therapy, Position/Reposition Pharmacological Interventions: Block, Epidural, PRN Medication, Topical Medication PQRS Narrative: Blood Pressure 155/102 Pain Intensity [Bilateral 8 Lower Neck] Scale Used Numeric (1 - 10) Hx Alcohol Use (MH) No Home Medications: Ambulatory Orders Amitriptyline HCl [Elavil] 10 mg PO HS 01/07/21 Bictegrav/Emtricit/Tenofov Ala [Biktarvy 50-200-25 mg Tablet] 1 tab PO HS 01/07/21 Famciclovir [Famvir] 500 mg PO BID 01/07/21 Fosamprenavir Calcium [Lexiva] 1,400 mg PO BID 01/07/21 Gabapentin 800 mg PO TID 01/07/21 Pioglitazone [Actos] 30 mg PO DAILY 01/07/21 metFORMIN HCL [Glucophage] 500 mg PO AC-BID 01/07/21 Atorvastatin [Lipitor] 40 mg PO HS #30 tab 01/10/21 Clopidogrel [Plavix] 75 mg PO DAILY #30 tab 01/10/21 ramipriL 1.25 mg PO QAM 10/10/23 Insulin Aspart [NovoLOG] 6 units SQ TID-W/MEALS 11/12/23 Insulin Glargine,Hum.rec.anlog [Lantus Solostar Pen] 25 units SQ BID 11/12/23 Tamsulosin [Flomax] 0.4 mg PO DAILY 02/12/24 Unk B Complex 1 tab PO DAILY 02/12/24 Unk Multi Vitamin 1 tab PO DAILY 02/12/24 Unk Vitamin D3 1 tab PO DAILY 02/12/24 Empagliflozin [Jardiance] 25 mg PO DAILY 03/30/24 Lansoprazole [Prevacid 24Hr] 15 mg PO DAILY 03/30/24 Controlled Substance Measures - Controlled Substance Measures Is patient prescribed a controlled substance at discharge?: No
== END ==
LOC: PNWHC3 08:49
PROVIDERS: ATTEND Specialist
DX: M54.12 Radiculopathy, cervical region (principal); Z88.8 Allergy status to other drugs, medicaments and biological substances
CPT/HCPCS: 99211

== ENCOUNTER → 2024-10-27 | Outpatient (CLI) | payer MEDICARE, BC ==
[2024-10-27 19:47] LABS: Blood Urea Nitrogen 18.8 mg/dL (9.0-27.0); Carbon Dioxide 22.4 mmol/L (21.6-31.8); Chloride 102 mmol/L (96-109); Chol/HDL Ratio 4.35 Ratio; Glucose 181 mg/dL (70-110); LDL Cholesterol,Calculated 110.4 mg/dL (0.0-131.0); Potassium 4.2 mmol/L (3.5-5.5); Sodium 138 mmol/L (135-145)
[2024-10-27 19:48] LABS: ALT 63 U/L (10-49); AST 46 U/L (14-35); Albumin 4.4 g/dL (3.8-4.9); Albumin/Globulin Ratio 1.76 Ratio (1.60-3.17); Alkaline Phosphatase 51 U/L (41-126); Calcium 9.6 mg/dL (8.7-10.3); Globulin 2.5 g/dL (1.6-3.3); Total Bilirubin 0.4 mg/dL (0.3-1.2); Total Protein 6.9 g/dL (6.2-8.2)
[2024-10-28 00:32] LABS: C-Peptide 2.66 ng/mL (0.81-3.85)
== END | disposition home or self-care (01) ==
LOC: LABWHC1 08:53
PROVIDERS: ATTEND Internal Medicine Endocrinology, Diabetes & Metabolism
DX: E11.65 Type 2 diabetes mellitus with hyperglycemia (principal)
CPT/HCPCS: 36415; 80053; 80061; 82043; 82570; 83036; 84443; 84681

== ENCOUNTER → 2024-12-09 | Outpatient (CLI) | payer MEDICARE, BC ==
[2024-12-09 16:01] LABS: ALT 79 U/L (10-49); AST 51 U/L (14-35); Albumin 4.2 g/dL (3.8-4.9); Albumin/Globulin Ratio 1.68 Ratio (1.60-3.17); Alkaline Phosphatase 48 U/L (41-126); BUN/Creat Ratio 18.67 Ratio (12.00-20.00); Blood Urea Nitrogen 16.8 mg/dL (9.0-27.0); Calcium 9.6 mg/dL (8.7-10.3); Carbon Dioxide 27.7 mmol/L (21.6-31.8); Chloride 101 mmol/L (96-109); Globulin 2.5 g/dL (1.6-3.3); Glucose 167 mg/dL (70-110); Potassium 4.3 mmol/L (3.5-5.5); Sodium 140 mmol/L (135-145); Total Bilirubin 0.4 mg/dL (0.3-1.2); Total Protein 6.7 g/dL (6.2-8.2)
[2024-12-09 22:35] LABS: C-Peptide 0.92 ng/mL (0.81-3.85)
== END | disposition home or self-care (01) ==
LOC: LABWHC1 09:13
PROVIDERS: ATTEND Internal Medicine Endocrinology, Diabetes & Metabolism
DX: E11.65 Type 2 diabetes mellitus with hyperglycemia (principal)
CPT/HCPCS: 36415; 80053; 84681

== ENCOUNTER → 2025-01-06 | Outpatient (CLI) | payer MEDICARE, BC ==
--- NOTE | 2025-01-06 12:11 | MR ---
EXAMINATION TYPE: MR lumbar spine wo con DATE OF EXAM: 01/06/2025 11:23 AM COMPARISON: None. CLINICAL INDICATION: Male, 59 years old with history of M54.50 LOW BACK PAIN, UNSPECIFIED, Lower back /right hip pain. Hx colorectal cancer. TECHNIQUE: Multiplanar, multisequence images of the lumbar spine were acquired without IV contrast. FINDINGS: Transitional lumbosacral segment denoted as a lumbarized S1. There is minimal intervertebral disc desiccation throughout. Minimal disc bulging T12-L1, L4-L5 and L 5-S1. No large focal disc herniation or significant spinal canal stenosis. Conus medullaris is normal. No suspicious bone marrow replacement. Vertebral body heights are preserved and alignment is maintain ed. There is hypertrophic facet arthropathy especially towards the right in the lower lumbar spine. Mild ligamentum flavum thickening lower lumbar spine. On the right, change results in moderate focal neuroforaminal stenosis L5-S1 possibly with abutment o f the exiting right L5 nerve root. On the left, minimal inferior neural foraminal narrowing L4-L5 and L5-S1. A small left intraforaminal annular fissure noted at L4-L5. No prevertebral or paravertebral soft tissue abnormality seen. IMPRESSION: 1. Transitional lumbosacral segment denoted as a lumbarized S1. 2. Early intervertebral disc desiccation throughout. No focal disc herniation or significant spinal c anal stenosis. 3. Hypertrophic facet arthropathy especially towards the right in the lower lumbar spine. Some ligame ntum flavum thickening in the lower lumbar spine. 4. On the right, change results in moderate neuroforaminal stenosis at L5-S1 with abutment of the exi ting right L5 nerve root. 5. On the left, there is minimal inferior foraminal narrowing at L4-L5 and L5-S1 along with a small l eft intraforaminal annular fissure at L4-L5. [facility], , 01/06/2025 12:09 PM
== END | disposition home or self-care (01) ==
LOC: RADMRIMAIN 09:05
PROVIDERS: ATTEND Internal Medicine
DX: M51.360 Other intervertebral disc degeneration, lumbar region with discogenic back pain only (principal); M47.816 Spondylosis without myelopathy or radiculopathy, lumbar region; M51.A1 Intervertebral annulus fibrosus defect, small, lumbar region; M99.73 Connective tissue and disc stenosis of intervertebral foramina of lumbar region
CPT/HCPCS: 72148

== ENCOUNTER → 2025-03-04 | Outpatient (CLI) | payer MEDICARE, BC | END | disposition home or self-care (01) | LOC: LABPAT 13:13 | PROVIDERS: ATTEND Nurse Practitioner | DX: Z01.812 Encounter for preprocedural laboratory examination (principal) | CPT/HCPCS: 83036 ==

== ENCOUNTER → 2025-03-10 | Outpatient (CLI) | payer MEDICARE, BC | END | disposition home or self-care (01) | LOC: LABPAT 13:33 | DX: Z01.818 Encounter for other preprocedural examination (principal); I51.7 Cardiomegaly; R94.31 Abnormal electrocardiogram [ECG] [EKG] | CPT/HCPCS: 93005 ==